=== PATIENT | female | born 1930 | race Caucasian/White ===

== ENCOUNTER 2019-04-17 12:13 | Inpatient (IN) | payer MEDICARE, OTHER ==
[~2019-04-17] VITALS: Ht 160 cm; Wt 66.7 kg
[2019-04-17 12:43] LABS: BASO % 1 % (0-3); EOS # 0.2 x10^3/uL (0.0-0.7); EOS % 4 % (0-3); HEMATOCRIT 39.6 % (36.0-47.0); HEMOGLOBIN 13.1 g/dL (12.0-15.5); LYMPH # 1.5 x10^3/uL (1.0-4.8); LYMPH % 29 % (24-48); MEAN CORPUSCULAR HEMOGLOBIN 34 pg (25-35); MEAN CORPUSCULAR HGB CONC 33 g/dL (31-37); MEAN CORPUSCULAR VOLUME 102 fL (79-100); MONO # 0.5 x10^3/uL (0.0-1.1); MONO % 10 % (0-9); NEUT % 57 % (31-73); PLATELET COUNT 124 x10^3/uL (140-400); RED BLOOD COUNT 3.87 x10^6/uL (3.50-5.40); RED CELL DISTRIBUTION WIDTH 15.9 % (11.5-14.5); WHITE BLOOD COUNT 5.3 x10^3/uL (4.0-11.0)
[2019-04-17 12:54] LABS: ALBUMIN 3.2 g/dL (3.4-5.0); ALBUMIN/GLOBULIN RATIO 0.9 (1.0-1.7); ALK PHOS 87 U/L (46-116); ALT (SGPT) 19 U/L (14-59); ANION GAP 3 (6-14); AST (SGOT) 20 U/L (15-37); BLOOD UREA NITROGEN 27 mg/dL (7-20); BUN/CREATININE RATIO 19 (6-20); CARBON DIOXIDE 34 mmol/L (21-32); CHLORIDE 105 mmol/L (98-107); CREATININE 1.4 mg/dL (0.6-1.0); GFR 35.7; GLUCOSE 107 mg/dL (70-99); MAGNESIUM 1.9 mg/dL (1.8-2.4); POTASSIUM 4.5 mmol/L (3.5-5.1); SODIUM 142 mmol/L (136-145); TOTAL BILIRUBIN 0.4 mg/dL (0.2-1.0); TOTAL PROTEIN 6.7 g/dL (6.4-8.2)
--- NOTE | 2019-04-17 12:54 | PHYS DOC ---
Past History Past Medical History: Asthma, Bipolar, Dementia, Hypertension, Schizophrenia, Other Additional Past Medical Histor: chronic kidney disease, osteoporosis right Past Surgical History: No Surgical History Smoking: Non-smoker Alcohol Use: None Drug Use: None Adult General Chief Complaint Chief Complaint: MEDICAL CLEARANCE HPI HPI Patient is a 88-year-old female presents with visual hallucinations and yelling. Combative towards staff. Verbally aggressive and name-calling at the assisted care facility where she resides. She is here for medical clearance for [facility]. History is limited from the patient due to history of dementia. Additional history obtained from patient's daughter. These current symptoms have been going on for approximately 6 months. Patient several decades ago had a year where she stopped talking after her partner . She was scheduled for electroconvulsive therapy bed he elected to leave the facility before this was provided.[] Review of Systems Review of Systems Constitutional: Denies fever or chills [] Eyes: Denies change in visual acuity, redness, or eye pain [] HENT: Denies nasal congestion or sore throat [] Respiratory: Denies cough or shortness of breath [] Cardiovascular: No chest pain or palpitations[] GI: Denies abdominal pain, nausea, vomiting, bloody stools or diarrhea [] : Denies dysuria or hematuria [] Musculoskeletal: Denies back pain or joint pain [] Integument: Denies rash or skin lesions [] Neurologic: Denies headache, focal weakness or sensory changes [] Endocrine: Denies polyuria or polydipsia [] All other systems were reviewed and found to be within normal limits, except as documented in this note. Physical Exam Physical Exam Constitutional: Well developed, well nourished, no acute distress, non-toxic appearance. [] HENT: Normocephalic, atraumatic, bilateral external ears normal, oropharynx moist, no oral exudates, nose normal. [] Eyes: PERRLA, EOMI, conjunctiva normal, no discharge. [] Neck: Normal range of motion, no tenderness, supple, no stridor. [] Cardiovascular:Heart rate regular rhythm, no murmur [] Lungs & Thorax: Bilateral breath sounds clear to auscultation [] Abdomen: Bowel sounds normal, soft, no tenderness, no masses, no pulsatile masses. [] Skin: Warm, dry, no erythema, no rash. [] Back: No tenderness, no CVA tenderness. [] Extremities: No tenderness, no cyanosis, no clubbing, ROM intact, no edema. [] Neurologic: Alert and oriented X 2, normal motor function, normal sensory function, no focal deficits noted. [] Psychologic: Randomly screaming out. Unable to assess judgment. [] Current Patient Data Vital Signs Vital Signs Date Time Temp Pulse Resp B/P (MAP) Pulse Ox O2 Delivery O2 Flow Rate FiO2 04/17/19 12:25 98.1 90 18 115/67 (83) 99 Nasal Cannula 2.0 Lab Results Laboratory Tests Test 04/17/19 12:22 White Blood Count 5.3 x10^3/uL (4.0-11.0) Red Blood Count 3.87 x10^6/uL (3.50-5.40) Hemoglobin 13.1 g/dL (12.0-15.5) Hematocrit 39.6 % (36.0-47.0) Mean Corpuscular Volume 102 fL (79-100) H Mean Corpuscular Hemoglobin 34 pg (25-35) Mean Corpuscular Hemoglobin Concent 33 g/dL (31-37) Red Cell Distribution Width 15.9 % (11.5-14.5) H Platelet Count 124 x10^3/uL (140-400) L Neutrophils (%) (Auto) 57 % (31-73) Lymphocytes (%) (Auto) 29 % (24-48) Monocytes (%) (Auto) 10 % (0-9) H Eosinophils (%) (Auto) 4 % (0-3) H Basophils (%) (Auto) 1 % (0-3) Neutrophils # (Auto) 3.0 x10^3uL (1.8-7.7) Lymphocytes # (Auto) 1.5 x10^3/uL (1.0-4.8) Monocytes # (Auto) 0.5 x10^3/uL (0.0-1.1) Eosinophils # (Auto) 0.2 x10^3/uL (0.0-0.7) Basophils # (Auto) 0.0 x10^3/uL (0.0-0.2) Prothrombin Time 10.8 SEC (9.4-11.4) Prothrombin Time INR 1.0 (0.9-1.1) EKG EKG EKG shows a sinus rhythm at 77 bpm, no ST elevations. Normal axis, QTC 411 ms, interpreted by me at 1322[] Radiology/Procedures Radiology/Procedures [] Course & Med Decision Making Course & Med Decision Making Pertinent Labs and Imaging studies reviewed. (See chart for details) ED course and medical decision making: Patient arrived, was placed in bed, and tolerated exam well. The white cells in the urine were noted and she was given antibiotics. Since these symptoms have been worsening for the past 6 months, she was thought to be medically clear for evaluation by [facility]. Findings were communicated with patient's daughter who voiced understanding. Patient was admitted in improved condition.[] Dragon Disclaimer Dragon Disclaimer This electronic medical record was generated, in whole or in part, using a voice recognition dictation system. Departure Departure: Impression: Primary Impression: Medical clearance for psychiatric admission Additional Impression: Urinary tract infection Disposition: ADMITTED INPATIENT Admitting Physician: Other Condition: STABLE Problem Qualifiers Additional Impression: Urinary tract infection Urinary tract infection type: site unspecified Hematuria presence: with hematuria Qualified Codes: N39.0 - Urinary tract infection, site not specified; R31.9 - Hematuria, unspecified ISAEL MAHONEY DO Apr 17, 2019 12:54
[2019-04-17 12:55] LABS: VAL ACID 34 mcg/mL (50-100)
--- NOTE | 2019-04-17 13:38 | EKG ---
[address] [address] Test Date: 2019-04-17 Test Time: 13:22:11 Pat Name: ALLIE JENSEN Department: Room: Gender: F District Branch Manager: : [id number] Requested By: ISAEL MAHONEY Order Number: [id number] Reading MD: Addy Borges MD Measurements Intervals Guild Rate: 77 P: 114 MT: 160 QRS: 32 QRSD: 74 T: 18 QT: 362 QTc: 411 Interpretive Statements SINUS RHYTHM Electronically Signed On 04-24-2019 17:04:05 CDT by Addy Borges MD
[2019-04-17 14:13] LABS: BACTERIA,URINE MOD /HPF (0-FEW); BILIRUBIN,URINE NEG (NEG); CLARITY,URINE CLOUDY; COLOR,URINE YELLOW; GLUCOSE,URINE NEG (NEG); NITRITE,URINE NEG (NEG); UROBILINOGEN,URINE 1 mg/dL (0.2 mg/dL); WBC,URINE >40 /HPF (0-4)
[2019-04-17 14:14] LABS: SQUAMOUS EPITHELIAL CELL,UR FEW /LPF
[2019-04-17] MEDS ORDERED: CEPHALEXIN 250 MG CAPSULE PO ONE (14:45)
[2019-04-17 15:36] VITALS: BP 124/74
[2019-04-17] MEDS ORDERED: ACETAMINOPHEN 325 MG TABLET PO PRN ×2 (16:15→20:15)
[2019-04-17] MEDS ORDERED: NYST1000 PO (18:25)
[2019-04-17] MEDS ORDERED: LACT1CAP21 PO (18:25)
[2019-04-17] MEDS ORDERED: FERR325T3 PO (18:25)
[2019-04-17] MEDS ORDERED: ACET160O49 PO (18:25)
[2019-04-17] MEDS ORDERED: ERGO500027 PO (18:25)
[2019-04-17] MEDS ORDERED: DULO20CA50 PO (18:25)
[2019-04-17] MEDS ORDERED: METO25TA4 PO (18:25)
[2019-04-17] MEDS ORDERED: ONDA4TAB7 PO (18:25)
[2019-04-17] MEDS ORDERED: ATOR10TA PO (18:25)
[2019-04-17] MEDS ORDERED: PANT40TA5 PO (18:25)
[2019-04-17] MEDS ORDERED: APIX5TAB3 PO (18:25)
[2019-04-17] MEDS ORDERED: CLON0.5T11 PO (18:25)
[2019-04-17] MEDS ORDERED: LEVO88TA4 PO (18:25)
[2019-04-17] MEDS ORDERED: QUET100T4 PO (18:25)
[2019-04-17] MEDS ORDERED: IPRA3AMP29 NEB (18:25)
[2019-04-17] MEDS ORDERED: DIVA125C2 PO (18:25)
[2019-04-17] MEDS ORDERED: CHOLECALCIFEROL (VITAMIN D3) 50,000 UNIT CAPSULE PO ONE (20:00)
[2019-04-17] MEDS ORDERED: ONDANSETRON ODT 4 MG TAB.RAPDIS PO PRN (20:15)
[2019-04-17] MEDS ORDERED: NYST15PO9 TP (20:28)
[2019-04-17] MEDS: DIVALPROEX 125 MG CAP.SPRINK PO SCH (20:57)
[2019-04-17] MEDS: CEPHALEXIN 250 MG CAPSULE PO SCH (20:57)
[2019-04-17] MEDS: APIXABAN 5 MG TABLET. PO SCH (20:57)
[2019-04-17] MEDS: LACTOBACILLUS RHAMNOSUS GG 1 CAPSULE. PO SCH (20:57)
[2019-04-17] MEDS: QUEtiapine 100 MG TABLET. PO SCH (20:57)
[2019-04-17] MEDS: METOPROLOL TART IMMED RELEASE 25 MG TABLET PO SCH (20:58)
[2019-04-17] MEDS: NYSTATIN TOPICAL POWDER 15GM BOTTLE. TP SCH (20:59)
[2019-04-17] MEDS: clonazePAM 0.5 MG TABLET PO SCH (20:59)
[2019-04-17] MEDS: ATORVASTATIN CALCIUM 10 MG TABLET. PO SCH (21:00)
[2019-04-17] MEDS: IPRATRPIUM/ALBUTEROL 0.5/2.5MG 3 ML NEBU. NEB SCH (21:26)
--- NOTE | 2019-04-17 22:01 | PDOC ---
Exam Note: Jose Note: Please also refer to the separate dictated note~for this date of service dictated separately. Discussed the patient with Nursing staff reviewed the chart.~Reviewed interim history and current functioning. Reviewed vital signs,~Labs/ Radiology~and current medications noted below. Continue current treatment with the changes noted in the dictated addendum note Assessment: Vital Signs/I&O: Vital Signs Date Time Temp Pulse Resp B/P (MAP) Pulse Ox O2 Delivery O2 Flow Rate FiO2 04/17/19 21:30 96 Room Air 04/17/19 21:01 83 124/74 04/17/19 15:36 97.8 20 04/17/19 12:25 2.0 Labs: Laboratory Tests Test 04/17/19 12:22 04/17/19 13:38 White Blood Count 5.3 x10^3/uL (4.0-11.0) Red Blood Count 3.87 x10^6/uL (3.50-5.40) Hemoglobin 13.1 g/dL (12.0-15.5) Hematocrit 39.6 % (36.0-47.0) Mean Corpuscular Volume 102 fL (79-100) H Mean Corpuscular Hemoglobin 34 pg (25-35) Mean Corpuscular Hemoglobin Concent 33 g/dL (31-37) Red Cell Distribution Width 15.9 % (11.5-14.5) H Platelet Count 124 x10^3/uL (140-400) L Neutrophils (%) (Auto) 57 % (31-73) Lymphocytes (%) (Auto) 29 % (24-48) Monocytes (%) (Auto) 10 % (0-9) H Eosinophils (%) (Auto) 4 % (0-3) H Basophils (%) (Auto) 1 % (0-3) Neutrophils # (Auto) 3.0 x10^3uL (1.8-7.7) Lymphocytes # (Auto) 1.5 x10^3/uL (1.0-4.8) Monocytes # (Auto) 0.5 x10^3/uL (0.0-1.1) Eosinophils # (Auto) 0.2 x10^3/uL (0.0-0.7) Basophils # (Auto) 0.0 x10^3/uL (0.0-0.2) Prothrombin Time 10.8 SEC (9.4-11.4) Prothrombin Time INR 1.0 (0.9-1.1) Sodium Level 142 mmol/L (136-145) Potassium Level 4.5 mmol/L (3.5-5.1) Chloride Level 105 mmol/L (98-107) Carbon Dioxide Level 34 mmol/L (21-32) H Anion Gap 3 (6-14) L Blood Urea Nitrogen 27 mg/dL (7-20) H Creatinine 1.4 mg/dL (0.6-1.0) H Estimated GFR (Cockcroft-Gault) 35.7 BUN/Creatinine Ratio 19 (6-20) Glucose Level 107 mg/dL (70-99) H Calcium Level 9.0 mg/dL (8.5-10.1) Magnesium Level 1.9 mg/dL (1.8-2.4) Total Bilirubin 0.4 mg/dL (0.2-1.0) Aspartate Amino Transferase (AST) 20 U/L (15-37) Alanine Aminotransferase (ALT) 19 U/L (14-59) Alkaline Phosphatase 87 U/L (46-116) Total Protein 6.7 g/dL (6.4-8.2) Albumin 3.2 g/dL (3.4-5.0) L Albumin/Globulin Ratio 0.9 (1.0-1.7) L Valproic Acid Level 34 mcg/mL (50-100) L Valproic Acid Last Dose Date 04/17/2019 Valproic Acid Last Dose Time 0001 Urine Collection Type U cath Urine Color Yellow Urine Clarity Cloudy Urine pH 7.5 Urine Specific [place] 1.020 Urine Protein 30 mg/dl (NEG-TRACE) Urine Glucose (UA) Neg mg/dL (NEG) Urine Ketones (Stick) Neg mg/dL (NEG) Urine Blood Mod (NEG) Urine Nitrite Neg (NEG) Urine Bilirubin Neg (NEG) Urine Urobilinogen Dipstick 1 mg/dL (0.2 mg/dL) Urine Leukocyte Esterase Mod (NEG) Urine RBC 11-20 /HPF (0-2) Urine WBC >40 /HPF (0-4) Urine Squamous Epithelial Cells Few /LPF Urine Bacteria Mod /HPF (0-FEW) Current Medications: Meds: Current Medications Medications (Trade) Dose Ordered Sig/Ne Route PRN Reason Start Time Stop Time Status Last Admin Dose Admin Cephalexin HCl (Keflex) 500 mg 1X ONCE PO 04/17/19 14:45 04/17/19 14:46 DC 04/17/19 14:38 Cephalexin HCl (Keflex) 500 mg TID PO 04/17/19 21:00 04/17/19 21:01 Vitamin D (Vitamin D3) 50,000 unit 1X ONCE PO 04/17/19 20:00 04/17/19 20:11 DC 04/17/19 21:01 Lactobacillus Rhamnosus (Culturelle) 1 cap BID PO 04/17/19 21:00 04/17/19 21:01 Clonazepam (KlonoPIN) 0.25 mg BID PO 04/17/19 21:00 04/17/19 21:01 Divalproex Sodium (Depakote Sprinkles) 375 mg QHS PO 04/17/19 21:00 04/17/19 21:01 Quetiapine Fumarate (SEROquel) 100 mg Q12HR PO 04/17/19 21:00 04/17/19 21:01 Apixaban (Eliquis) 5 mg BID PO 04/17/19 21:00 04/17/19 21:01 Atorvastatin Calcium (Lipitor) 5 mg QHS PO 04/17/19 21:00 04/17/19 21:01 Albuterol/ Ipratropium (Duoneb) 3 ml QID NEB 04/17/19 21:00 04/17/19 21:26 Metoprolol Tartrate (Lopressor) 12.5 mg BID PO 04/17/19 21:00 04/17/19 21:01 Nystatin (Nystop) 1 roxie TID TP 04/17/19 21:00 04/17/19 21:01 I have reviewed the current psychotropics carefully including drug interactions. Risk benefit ratio favors no change other than as noted in my dictated progress note. Diagnosis: Problems: (1) Anxiety disorder (2) Dementia in Alzheimer's disease with delusions (3) Dementia in Alzheimer's disease with depression (4) Dementia, vascular, with depression (5) Dementia, vascular, with delusions (6) Impulse control disorder ARMINDA YORK MD Apr 17, 2019 22:01
[2019-04-17 23:06] LABS: THYROXINE 4.7 ug/dL (4.5-12.0)
[2019-04-18 05:50] VITALS: BP 99/64
[2019-04-18] MEDS: IPRATRPIUM/ALBUTEROL 0.5/2.5MG 3 ML NEBU. NEB SCH ×4 (06:14→20:52)
[2019-04-18] MEDS ORDERED: LEVOTHYROXINE 88 MCG TABLET PO SCH (07:30)
[2019-04-18] MEDS: QUEtiapine 100 MG TABLET. PO SCH ×2 (08:44→20:06)
[2019-04-18] MEDS: LACTOBACILLUS RHAMNOSUS GG 1 CAPSULE. PO SCH ×2 (08:44→20:05)
[2019-04-18] MEDS: DULoxetine HCL 20 MG CAPSULE.DR PO SCH (08:44)
[2019-04-18] MEDS: FERROUS SULFATE 325 MG TABLET. PO SCH (08:45)
[2019-04-18] MEDS: PANTOPRAZOLE 40 MG TABLET. PO SCH ×2 (08:45→15:20)
[2019-04-18] MEDS: clonazePAM 0.5 MG TABLET PO SCH ×2 (08:45→20:08)
[2019-04-18] MEDS: CEPHALEXIN 250 MG CAPSULE PO SCH ×3 (08:45→20:05)
[2019-04-18] MEDS: APIXABAN 5 MG TABLET. PO SCH ×2 (08:45→20:05)
[2019-04-18] MEDS: METOPROLOL TART IMMED RELEASE 25 MG TABLET PO SCH ×2 (08:46→20:07)
[2019-04-18] MEDS: NYSTATIN TOPICAL POWDER 15GM BOTTLE. TP SCH ×3 (08:46→20:06)
--- NOTE | 2019-04-18 10:12 | RAD ---
CT scan of the head without contrast 04/18/2019 Clinical History: Mental status changes. Technique: Unenhanced, contiguous, 5 mm axial sections were obtained through the head. One or more of the following individualized dose reduction techniques were utilized for this study: 1. Automated exposure control. 2. Adjustment of the mA and/or kV according to patient size. 3. Use of iterative reconstruction technique. Findings: Comparison study is dated 10/22/2016. There is generalized parenchymal atrophy. Areas of decreased attenuation are seen within the periventricular and subcortical white matter of both cerebral hemispheres consistent with areas of small vessel ischemic disease. A 1 cm rounded extra-axial mass is seen posterior to the right parietal lobe consistent with a meningioma. It is unchanged. There is no significant mass effect. No acute parenchymal abnormality is seen. No extra-axial fluid collection is noted. No skull fracture is seen. Impression: No acute intracranial abnormality is seen. Electronically signed by: Sherman Contreras MD (04/18/2019 10:09 AM) [id number]
--- NOTE | 2019-04-18 14:37 | HP ---
ADMIT DATE: 04/17/2019 PSYCHIATRIC ADMISSION HISTORY AND EVALUATION This late entry, 04/17/2019, covers elements not covered in my initial note. SUBJECTIVE: I met with the patient evening of 04/17/2019 and previously discussed with nursing staff and Luma Agudelo, technical services coordinator after we got a referral from [facility] in [place], [place] on account of the patient's active visual hallucinations, yelling, physically combative towards staff, kicking and name calling, verbally aggressive. She had failed outpatient psychiatric interventions with Dr. Suero and her primary care physician, Dr. Bonilla, resulting in this referral. CHIEF COMPLAINT: "I have been here for many years." The patient is quite confused, restless, anxious. HISTORY OF PRESENT ILLNESS: The patient has a history of dementia, Alzheimer's vascular type. She has been residing at the above facility for some time, but recently having active hallucinations, mostly visual, some auditory, yelling, combative at staff, kicking and name calling, verbally aggressive, physically attacking staff. She has had sleep and appetite changes, has a questionable past history of bipolar disorder. No active suicidal or homicidal ideation other than above. PAST PSYCHIATRIC HISTORY: As above. MEDICAL HISTORY: Chronic kidney disease stage 3, osteoporosis, hypertension. No alcohol or drug abuse history. ALLERGIES: Negative. CODE STATUS: DNR. ACCU-CHEKS: Negative. DIET: Regular mechanical soft. Takes medications whole. Ambulates wheelchair 1 or 2 person assist. She was positive for UTI in the ER and started on Keflex. I have reviewed those records as well. FAMILY HISTORY: Noncontributory. SOCIAL HISTORY: No history of alcohol, drug abuse, physical, sexual or elder abuse. She is not known to be a perpetrator. REACTION TO HOSPITALIZATION: The patient oblivious of this asset, supportive, stable living at the alf. MENTAL STATUS EXAMINATION: The patient was seen individually evening of 04/17/2019. She is oriented to herself. She is anxious, restless. Insight, judgment, recent and remote memory, attention, concentration, fund of knowledge poor, consistent with her diagnosis. LABORATORY DATA: Reviewed. IMPRESSION: Major neurocognitive disorder, Alzheimer, vascular with delusion, depression, behavioral disturbance; anxiety disorder, unspecified; impulse control disorder, unspecified; urinary tract infection. Rest as above. PLAN: Admit to Geropsychiatry Unit at [facility]. I will see the patient daily individually from a psychiatric standpoint. Medical followup with Dr. Gaytan. Continue current psychotropics. Observe the patient's baseline, then adjust as clinically indicated. MAN Victor M YORK MD DR: GONZALO/layne JOB#: [id number] / [id number]
[2019-04-18 15:23] VITALS: BP 127/65
[2019-04-18] MEDS: DIVALPROEX 125 MG CAP.SPRINK PO SCH (20:05)
[2019-04-18] MEDS: ATORVASTATIN CALCIUM 10 MG TABLET. PO SCH (20:06)
[2019-04-18] MEDS: MIRTAZAPINE 7.5 MG TABLET. PO SCH (20:08)
[2019-04-18 20:44] LABS: THYROID STIM HORMONE (TSH) 1.37 uIU/mL (0.358-3.740)
--- NOTE | 2019-04-18 22:04 | PDOC ---
Exam Note: Jose Note: Please also refer to the separate dictated note~for this date of service dictated separately.~Patient seen individually. Discussed the patient with Nursing staff reviewed the chart.~Reviewed interim history and current functioning. Reviewed vital signs,~Labs/ Radiology~and current medications noted below. Continue current treatment with the changes noted in the dictated addendum note Assessment: Vital Signs/I&O: Vital Signs Date Time Temp Pulse Resp B/P (MAP) Pulse Ox O2 Delivery O2 Flow Rate FiO2 04/18/19 20:45 96 Room Air 04/18/19 20:08 69 127/65 04/18/19 15:23 97.9 16 04/17/19 12:25 2.0 I & O 04/17/19 04/17/19 04/18/19 15:00 23:00 07:00 Intake Total 240 ml 120 ml Balance 240 ml 120 ml Current Medications: Meds: Current Medications Medications (Trade) Dose Ordered Sig/Ne Route PRN Reason Start Time Stop Time Status Last Admin Dose Admin Ferrous Sulfate (Feosol) 325 mg DAILYWBKFT PO 04/18/19 08:00 04/18/19 08:46 Duloxetine HCl (Cymbalta) 20 mg DAILY PO 04/18/19 09:00 04/18/19 08:46 Pantoprazole Sodium (Protonix) 40 mg BIDBFRMEAL PO 04/18/19 07:30 04/18/19 15:20 Mirtazapine (Remeron) 7.5 mg QHS PO 04/18/19 21:00 04/18/19 20:08 I have reviewed the current psychotropics carefully including drug interactions. Risk benefit ratio favors no change other than as noted in my dictated progress note. Diagnosis: Problems: (1) Anxiety disorder (2) Dementia in Alzheimer's disease with delusions (3) Dementia in Alzheimer's disease with depression (4) Dementia, vascular, with depression (5) Dementia, vascular, with delusions (6) Impulse control disorder (7) Major neurocognitive disorder ARMINDA YORK MD Apr 18, 2019 22:04
[2019-04-19 00:07] LABS: HEMOGLOBIN A1C 5.1 % (4.8-5.6)
--- NOTE | 2019-04-19 01:56 | CONS ---
DATE OF CONSULTATION: 04/18/2019 REASON FOR CONSULTATION: Medical management. HISTORY OF PRESENT ILLNESS: The patient is an 88-year-old female patient, a resident at [facility], who was referred by her primary care physician on account of the patient's active visual hallucination, yelling, physically combative towards staff, kicking and name calling, verbally aggressive. She had failed outpatient psychiatric intervention and resulting in a referral [facility]. PAST PSYCHIATRIC HISTORY: Significant for dementia, Alzheimer, vascular type, has been in the above-named facility for some time, but recently has active hallucinations, mostly visual, somewhat jittery, yelling, combative. There were no suicidal or homicidal ideation. PAST MEDICAL HISTORY: Significant for chronic kidney disease stage 3, osteoporosis, hypertension. PAST SURGICAL HISTORY: Unremarkable. FAMILY HISTORY: Noncontributory. SOCIAL HISTORY: She is a resident at [facility]. She apparently does not smoke, drink alcohol, or use recreational drugs. ALLERGIES: She has no known drug allergies. MEDICATIONS: She is currently on following medications: She is on ipratropium bromide and albuterol sulfate 3 mL by nebulizer 4 times a day, ferrous sulfate 325 mg twice a day, apixaban or Eliquis 5 mg twice a day, atorvastatin calcium 5 mg at bedtime. She is on metoprolol tartrate 12.5 mg twice a day, acetaminophen 650 mg every 6 hours, clonazepam 0.25 mg twice a day, Depakote Sprinkle 375 mg at bedtime, duloxetine 20 mg daily, quetiapine fumarate 100 mg every 12 hours, ondansetron ODT 4 mg every 6 hours, Protonix 40 mg twice a day, Lactobacillus rhamnosus 1 gram twice a day, levothyroxine sodium 88 mcg once a day, nystatin powder apply topically 3 times a day, ergocalciferol, vitamin D3 50,000 international units once a week. PHYSICAL EXAMINATION: GENERAL: When I examined her, she was sitting comfortably in her wheelchair, in no apparent respiratory distress. She was pale, but no jaundice, cyanosis or thyromegaly. No jugular venous distension. No limb edema. VITAL SIGNS: Her heart rate was 74, blood pressure was 99/64, temperature was 96.9, respiratory rate was 18, and oxygen saturation was 95%. HEAD, EYES, EAR, NOSE, AND THROAT: Normocephalic, atraumatic. NECK: Supple. HEART: Showed normal first and second heart sounds. No gallop or murmur. CHEST: Clear to auscultation. No crepitation or rhonchi. ABDOMEN: Distended, soft, nontender. NEUROLOGIC: She is demented, but without any obvious lateralizing signs. All cranial nerves intact. EXTREMITIES: She moves extremities without difficulty, though she is mostly bedbound. She has old wound on the anterior aspect of the right schroeder covered with Steri-Strips with no evidence of surrounding erythema, tenderness or discharge. LABORATORY DATA: Her lab work today showed a serum sodium 142, potassium 4.5, chloride 105, bicarbonate 34, anion gap of 3, BUN of 27, creatinine 1.4, estimated GFR was 36 mL per minute. Her glucose 107, calcium was 9, magnesium was 1.9. Total bilirubin, AST, ALT, alkaline phosphatase; total protein was 6.7, albumin was 3.2, T4 of 4.7, total T3 of 61. White cell count was 5300, hemoglobin 13, hematocrit 39, MCV 102, platelet was 124,000. Her prothrombin time was 10.8, INR of 1. Urinalysis showed the patient has more than 40 wbc's, moderate amount of blood, negative for nitrite, has also moderate bacteria. Her valproic acid was only 34 nanogram per mL. IMAGING STUDIES: She did have a CT scan of the head, which showed that there is generalized parenchymal atrophy, areas of decreased attenuation are seen within the periventricular and subcortical white matter of both cerebral hemispheres consistent with areas of small vessel ischemic disease. A 1-cm rounded extraaxial mass is seen posterior to the right parietal lobe consistent with a meningioma, which is unchanged. There is no significant mass effect, no acute parenchymal abnormality seen. No extraaxial fluid collection is noted. No skull fracture is seen. IMPRESSION: In summary, this is an 88-year-old female patient, who is residing at [facility], who was admitted on account of increasing visual hallucination, yelling, physically combative towards staff, kicking and name calling, verbally aggressive, apparently has failed outpatient psychiatric intervention. Medically, she has a multitude of medical problems including hypertension, hyperlipidemia, hypothyroidism, gastroesophageal reflux disease, chronic kidney disease, urinary tract infection, osteoporosis, and osteoarthritis. She is hemodynamically stable, afebrile, and her white cell count is normal. I would wait for the result of the culture and sensitivity. Meanwhile, we will continue with all her current medications. I will follow all her lab works that are still pending at the time of this dictation and make any necessary recommendation. Thank you, Dr. Mahmood for allowing me to participate in the care of this patient. WILFRED JAIMES MD DR: LEA/layne JOB#: [id number] / [id number]
[2019-04-19] MEDS: IPRATRPIUM/ALBUTEROL 0.5/2.5MG 3 ML NEBU. NEB SCH ×4 (05:03→20:39)
[2019-04-19] MEDS: LEVOTHYROXINE 88 MCG TABLET PO SCH (05:30)
[2019-04-19 05:34] VITALS: BP 96/57
[2019-04-19] MEDS: FERROUS SULFATE 325 MG TABLET. PO SCH (08:07)
[2019-04-19] MEDS: PANTOPRAZOLE 40 MG TABLET. PO SCH ×2 (08:07→17:17)
[2019-04-19] MEDS: LACTOBACILLUS RHAMNOSUS GG 1 CAPSULE. PO SCH ×2 (08:07→19:17)
[2019-04-19] MEDS: DULoxetine HCL 20 MG CAPSULE.DR PO SCH (08:07)
[2019-04-19] MEDS: CEPHALEXIN 250 MG CAPSULE PO SCH ×3 (08:09→19:17)
[2019-04-19] MEDS: APIXABAN 5 MG TABLET. PO SCH ×2 (08:09→19:17)
[2019-04-19] MEDS: DIVALPROEX 125 MG CAP.SPRINK PO SCH ×2 (08:09→19:16)
[2019-04-19] MEDS: METOPROLOL TART IMMED RELEASE 25 MG TABLET PO SCH ×2 (08:10→19:20)
[2019-04-19] MEDS: clonazePAM 0.5 MG TABLET PO SCH ×2 (08:10→19:20)
[2019-04-19] MEDS: QUEtiapine 100 MG TABLET. PO SCH ×2 (08:11→19:17)
[2019-04-19] MEDS: NYSTATIN TOPICAL POWDER 15GM BOTTLE. TP SCH ×3 (08:11→19:18)
[2019-04-19 15:44] VITALS: BP 111/73
[2019-04-19] MEDS: ATORVASTATIN CALCIUM 10 MG TABLET. PO SCH (19:17)
[2019-04-19] MEDS: MIRTAZAPINE 7.5 MG TABLET. PO SCH (19:17)
--- NOTE | 2019-04-19 21:55 | PDOC ---
Exam Note: Jose Note: Please also refer to the separate dictated note~for this date of service dictated separately.~Patient seen individually. Discussed the patient with Nursing staff reviewed the chart.~Reviewed interim history and current functioning. Reviewed vital signs,~Labs/ Radiology~and current medications noted below. Continue current treatment with the changes noted in the dictated addendum note Assessment: Vital Signs/I&O: Vital Signs Date Time Temp Pulse Resp B/P (MAP) Pulse Ox O2 Delivery O2 Flow Rate FiO2 04/19/19 20:20 95 Room Air 04/19/19 19:21 66 111/73 04/19/19 15:44 97.4 20 04/17/19 12:25 2.0 I & O 04/18/19 04/18/19 04/19/19 15:00 23:00 07:00 Intake Total 480 ml 240 ml 240 ml Balance 480 ml 240 ml 240 ml Current Medications: Meds: Current Medications Medications (Trade) Dose Ordered Sig/Ne Route PRN Reason Start Time Stop Time Status Last Admin Dose Admin Levothyroxine Sodium (Synthroid) 88 mcg DAILY06 PO 04/19/19 06:00 04/19/19 05:30 Divalproex Sodium (Depakote Sprinkles) 250 mg DAILY PO 04/19/19 09:00 04/19/19 08:11 I have reviewed the current psychotropics carefully including drug interactions. Risk benefit ratio favors no change other than as noted in my dictated progress note. Diagnosis: Problems: (1) Major neurocognitive disorder (2) Anxiety disorder (3) Dementia in Alzheimer's disease with delusions (4) Dementia in Alzheimer's disease with depression (5) Dementia, vascular, with depression (6) Dementia, vascular, with delusions (7) Impulse control disorder ARMINDA YORK MD Apr 19, 2019 21:55
[2019-04-20] MEDS: IPRATRPIUM/ALBUTEROL 0.5/2.5MG 3 ML NEBU. NEB SCH ×4 (05:19→20:44)
[2019-04-20] MEDS: LEVOTHYROXINE 88 MCG TABLET PO SCH (05:28)
[2019-04-20 05:50] VITALS: BP 132/77
[2019-04-20] MEDS: LACTOBACILLUS RHAMNOSUS GG 1 CAPSULE. PO SCH ×2 (08:03→20:23)
[2019-04-20] MEDS: PANTOPRAZOLE 40 MG TABLET. PO SCH ×2 (08:03→16:56)
[2019-04-20] MEDS: FERROUS SULFATE 325 MG TABLET. PO SCH (08:03)
[2019-04-20] MEDS: DIVALPROEX 125 MG CAP.SPRINK PO SCH ×2 (08:03→20:24)
[2019-04-20] MEDS: DULoxetine HCL 20 MG CAPSULE.DR PO SCH (08:03)
[2019-04-20] MEDS: APIXABAN 5 MG TABLET. PO SCH ×2 (08:04→20:23)
[2019-04-20] MEDS: CEPHALEXIN 250 MG CAPSULE PO SCH ×2 (08:04→13:24)
[2019-04-20] MEDS: clonazePAM 0.5 MG TABLET PO SCH ×2 (08:05→20:26)
[2019-04-20] MEDS: QUEtiapine 100 MG TABLET. PO SCH ×2 (08:07→20:23)
[2019-04-20] MEDS: METOPROLOL TART IMMED RELEASE 25 MG TABLET PO SCH ×2 (08:07→20:34)
[2019-04-20] MEDS: NYSTATIN TOPICAL POWDER 15GM BOTTLE. TP SCH ×3 (08:08→20:26)
[2019-04-20 15:59] VITALS: BP 101/63
[2019-04-20] MEDS: MIRTAZAPINE 7.5 MG TABLET. PO SCH (20:23)
[2019-04-20] MEDS: ATORVASTATIN CALCIUM 10 MG TABLET. PO SCH (20:24)
[2019-04-20] MEDS: DOXYCYCLINE HYCLATE 100 MG TABLET PO SCH (20:26)
[2019-04-20 20:33] VITALS: BP 112/59
--- NOTE | 2019-04-20 21:00 | PDOC ---
Exam Note: Jose Note: Please also refer to the separate dictated note~for this date of service dictated separately.~Patient seen individually. Discussed the patient with Nursing staff reviewed the chart.~Reviewed interim history and current functioning. Reviewed vital signs,~Labs/ Radiology~and current medications noted below. Continue current treatment with the changes noted in the dictated addendum note Assessment: Vital Signs/I&O: Vital Signs Date Time Temp Pulse Resp B/P (MAP) Pulse Ox O2 Delivery O2 Flow Rate FiO2 04/20/19 20:34 85 112/59 04/20/19 16:04 94 Room Air 04/20/19 15:59 97.1 20 04/20/19 05:50 2.0 I & O 04/19/19 04/19/19 04/20/19 14:59 22:59 06:59 Intake Total 480 ml 240 ml 120 ml Balance 480 ml 240 ml 120 ml Current Medications: Meds: Current Medications Medications (Trade) Dose Ordered Sig/Ne Route PRN Reason Start Time Stop Time Status Last Admin Dose Admin Doxycycline Hyclate (Vibra-Tab) 100 mg BID PO 04/20/19 21:00 04/20/19 20:26 I have reviewed the current psychotropics carefully including drug interactions. Risk benefit ratio favors no change other than as noted in my dictated progress note. Diagnosis: Problems: (1) Major neurocognitive disorder (2) Anxiety disorder (3) Dementia in Alzheimer's disease with delusions (4) Dementia in Alzheimer's disease with depression (5) Dementia, vascular, with depression (6) Dementia, vascular, with delusions (7) Impulse control disorder ARMINDA YORK MD Apr 20, 2019 21:00
--- NOTE | 2019-04-20 22:01 | PN ---
DATE: 04/18/2019 PSYCHIATRIC PROGRESS NOTE This late entry 04/18/2019 covers elements not covered in my initial note. SUBJECTIVE: I met with the patient evening of 04/18/2019. The patient slept 5-1/2 hours previous night. She has been extremely labile in her mood, kicking at staff, refusing her dentures. CT head shows no acute changes. She remains confused, believes she has been here 1-1/2 years as I questioned her. REVIEW OF SYSTEMS: Ambulation impaired, in wheelchair. No CV, , pulmonary, eye, ENT system symptoms on review. MENTAL STATUS EXAMINATION: Oriented to herself. Insight, judgment, recent and remote memory, attention, concentration, fund of knowledge poor, consistent with her diagnoses. IMPRESSION: Major neurocognitive disorder; Alzheimer, vascular with delusion; depression; behavioral disturbance; anxiety disorder, unspecified; impulse control disorder, unspecified; urinary tract infection, on Keflex. PLAN: Valproic acid level is subtherapeutic at 34. She is on Depakote Sprinkles 375 mg at bedtime, Klonopin 0.25 mg twice a day, Seroquel 100 mg twice a day, Cymbalta 20 mg a day. She slept 5-1/4 hours and we will go ahead and add Remeron 7.5 mg at bedtime, increase Depakote Sprinkles to 250 mg in the morning, 375 mg at bedtime. Check CBC, CMP, valproic acid level in 3 days. Treat the UTI. Adjust further as clinically indicated. ARMINDA YORK MD DR: GONZALO/layne JOB#: [id number] / [id number]
--- NOTE | 2019-04-20 22:06 | PN ---
DATE: 04/19/2019 PSYCHIATRIC PROGRESS NOTE This late entry 04/19/2019 covers elements not covered in my initial note. SUBJECTIVE: I met with the patient evening of 04/19/2019. The patient slept 6-1/2 hours previous night. She did well during the day until 7:00 p.m. and then she was yelling, screaming, running into others with her wheelchair and into their rooms, difficult to redirect. Vitamin D is elevated at 142 ng/mL. There is no psychiatric cause for this and I will defer to Dr. Gaytan for further workup. REVIEW OF SYSTEMS: Ambulation impaired, in wheelchair. No CV, , pulmonary, eye, ENT system symptoms on review. Reliability poor. MENTAL STATUS EXAM: Oriented to herself. Insight, judgment, recent and remote memory, attention, concentration, fund of knowledge poor, consistent with her diagnosis mentioned in my initial note. PLAN: No change from initial note. Depakote was increased. Labs are awaited on the . Vitamin D will be deferred to Dr. Gaytan. Treat the UTI. Rest unchanged. MAN Victor M YORK MD DR: GONZALO/layne JOB#: [id number] / [id number]
[2019-04-21 05:41] VITALS: BP 148/75
[2019-04-21] MEDS: IPRATRPIUM/ALBUTEROL 0.5/2.5MG 3 ML NEBU. NEB SCH ×4 (05:55→20:40)
[2019-04-21] MEDS: LEVOTHYROXINE 88 MCG TABLET PO SCH (06:23)
[2019-04-21] MEDS: LACTOBACILLUS RHAMNOSUS GG 1 CAPSULE. PO SCH ×2 (07:46→19:34)
[2019-04-21] MEDS: DIVALPROEX 125 MG CAP.SPRINK PO SCH ×2 (07:46→19:35)
[2019-04-21] MEDS: PANTOPRAZOLE 40 MG TABLET. PO SCH ×2 (07:46→16:59)
[2019-04-21] MEDS: APIXABAN 5 MG TABLET. PO SCH ×2 (07:46→19:35)
[2019-04-21] MEDS: DOXYCYCLINE HYCLATE 100 MG TABLET PO SCH ×2 (07:46→19:35)
[2019-04-21] MEDS: FERROUS SULFATE 325 MG TABLET. PO SCH (07:47)
[2019-04-21] MEDS: DULoxetine HCL 20 MG CAPSULE.DR PO SCH (07:47)
[2019-04-21] MEDS: METOPROLOL TART IMMED RELEASE 25 MG TABLET PO SCH ×2 (07:48→19:39)
[2019-04-21] MEDS: QUEtiapine 100 MG TABLET. PO SCH ×2 (07:51→19:34)
[2019-04-21] MEDS: clonazePAM 0.5 MG TABLET PO SCH ×2 (07:51→19:36)
[2019-04-21] MEDS: NYSTATIN TOPICAL POWDER 15GM BOTTLE. TP SCH ×3 (07:52→19:35)
[2019-04-21 15:46] VITALS: BP 107/67
[2019-04-21] MEDS: MIRTAZAPINE 7.5 MG TABLET. PO SCH (19:34)
[2019-04-21] MEDS: ATORVASTATIN CALCIUM 10 MG TABLET. PO SCH (19:35)
[2019-04-21 19:38] VITALS: BP 120/58
--- NOTE | 2019-04-21 22:21 | PDOC ---
Exam Note: Jose Note: Please also refer to the separate dictated note~for this date of service dictated separately.~Patient seen individually. Discussed the patient with Nursing staff reviewed the chart.~Reviewed interim history and current functioning. Reviewed vital signs,~Labs/ Radiology~and current medications noted below. Continue current treatment with the changes noted in the dictated addendum note Assessment: Vital Signs/I&O: Vital Signs Date Time Temp Pulse Resp B/P (MAP) Pulse Ox O2 Delivery O2 Flow Rate FiO2 04/21/19 20:24 96 Room Air 04/21/19 19:39 78 120/58 04/21/19 15:46 97.4 16 04/20/19 05:50 2.0 I & O 04/20/19 04/20/19 04/21/19 14:59 22:59 06:59 Intake Total 240 ml 240 ml 120 ml Balance 240 ml 240 ml 120 ml Current Medications: I have reviewed the current psychotropics carefully including drug interactions. Risk benefit ratio favors no change other than as noted in my dictated progress note. Diagnosis: Problems: (1) Anxiety disorder (2) Dementia in Alzheimer's disease with delusions (3) Dementia in Alzheimer's disease with depression (4) Dementia, vascular, with depression (5) Dementia, vascular, with delusions (6) Impulse control disorder (7) Major neurocognitive disorder ARMINDA YORK MD Apr 21, 2019 22:21
--- NOTE | 2019-04-21 23:18 | PN ---
DATE: 04/20/2019 PSYCHIATRIC PROGRESS NOTE This late entry, 04/20/2019, covers elements not covered in my initial note. SUBJECTIVE: I met with the patient in the evening of 04/20/2019. The patient slept 7-3/4 hours previous night. She has been delusional, looking for her daughter and as I met with her that is the first question she asked me, if I could find her daughter. When I asked her what was her daughter's name? She replied "Leeanna." When I reminded her that is what her name was, then she added Yolanda and was still confused about her daughter's name, unable to remember it after repeated attempts. REVIEW OF SYSTEMS: Ambulation impaired, in wheelchair. No CV, , pulmonary, eye, ENT system symptoms on review. MENTAL STATUS EXAM: The patient is oriented to herself. Insight, judgment, recent and remote memory, attention, concentration, fund of knowledge poor, consistent with her diagnosis mentioned in my initial note. PLAN: No change from initial note. The patient's Keflex has been changed to doxycycline 100 mg b.i.d. for the UTI. Maintain Cymbalta, Seroquel, Depakote along with Klonopin, Zyprexa p.r.n., and Remeron. ARMINDA YORK MD DR: GONZALO/layne JOB#: [id number] / [id number]
[2019-04-22] MEDS: LEVOTHYROXINE 88 MCG TABLET PO SCH (05:29)
[2019-04-22] MEDS: IPRATRPIUM/ALBUTEROL 0.5/2.5MG 3 ML NEBU. NEB SCH ×4 (05:34→20:09)
[2019-04-22 06:13] VITALS: BP 136/75
[2019-04-22 07:22] LABS: BASO % 1 % (0-3); EOS # 0.2 x10^3/uL (0.0-0.7); EOS % 3 % (0-3); HEMOGLOBIN 13.9 g/dL (12.0-15.5); LYMPH # 1.3 x10^3/uL (1.0-4.8); LYMPH % 15 % (24-48); MEAN CORPUSCULAR HEMOGLOBIN 33 pg (25-35); MEAN CORPUSCULAR HGB CONC 33 g/dL (31-37); MEAN CORPUSCULAR VOLUME 101 fL (79-100); MONO # 0.6 x10^3/uL (0.0-1.1); MONO % 7 % (0-9); NEUT # 6.4 x10^3uL (1.8-7.7); NEUT % 75 % (31-73); PLATELET COUNT 139 x10^3/uL (140-400); RED BLOOD COUNT 4.15 x10^6/uL (3.50-5.40); RED CELL DISTRIBUTION WIDTH 15.7 % (11.5-14.5); WHITE BLOOD COUNT 8.5 x10^3/uL (4.0-11.0)
[2019-04-22 07:37] LABS: ALBUMIN 3.3 g/dL (3.4-5.0); ALK PHOS 78 U/L (46-116); ALT (SGPT) 17 U/L (14-59); ANION GAP 9 (6-14); AST (SGOT) 22 U/L (15-37); BLOOD UREA NITROGEN 18 mg/dL (7-20); BUN/CREATININE RATIO 14 (6-20); CALCIUM 9.2 mg/dL (8.5-10.1); CARBON DIOXIDE 28 mmol/L (21-32); CHLORIDE 108 mmol/L (98-107); CREATININE 1.3 mg/dL (0.6-1.0); GFR 38.8; GLUCOSE 96 mg/dL (70-99); POTASSIUM 4.5 mmol/L (3.5-5.1); SODIUM 145 mmol/L (136-145); TOTAL BILIRUBIN 0.4 mg/dL (0.2-1.0); TOTAL PROTEIN 6.6 g/dL (6.4-8.2)
[2019-04-22 07:38] LABS: VAL ACID 86 mcg/mL (50-100)
[2019-04-22] MEDS: LACTOBACILLUS RHAMNOSUS GG 1 CAPSULE. PO SCH ×2 (08:05→19:22)
[2019-04-22] MEDS: DOXYCYCLINE HYCLATE 100 MG TABLET PO SCH ×2 (08:05→19:21)
[2019-04-22] MEDS: PANTOPRAZOLE 40 MG TABLET. PO SCH ×2 (08:05→16:55)
[2019-04-22] MEDS: METOPROLOL TART IMMED RELEASE 25 MG TABLET PO SCH ×2 (08:06→19:22)
[2019-04-22] MEDS: APIXABAN 5 MG TABLET. PO SCH ×2 (08:06→19:20)
[2019-04-22] MEDS: FERROUS SULFATE 325 MG TABLET. PO SCH (08:06)
[2019-04-22] MEDS: DULoxetine HCL 20 MG CAPSULE.DR PO SCH (08:06)
[2019-04-22] MEDS: QUEtiapine 100 MG TABLET. PO SCH ×2 (08:07→19:21)
[2019-04-22] MEDS: NYSTATIN TOPICAL POWDER 15GM BOTTLE. TP SCH ×3 (08:07→19:22)
[2019-04-22] MEDS: DIVALPROEX 125 MG CAP.SPRINK PO SCH ×2 (08:07→19:21)
[2019-04-22] MEDS: clonazePAM 0.5 MG TABLET PO SCH ×2 (08:08→19:24)
[2019-04-22 16:06] VITALS: BP 115/71
[2019-04-22] MEDS: ATORVASTATIN CALCIUM 10 MG TABLET. PO SCH (19:21)
[2019-04-22] MEDS: MIRTAZAPINE 15 MG TABLET PO SCH (19:52)
--- NOTE | 2019-04-22 20:49 | PN ---
DATE: 04/21/2019 PROGRESS NOTE This late entry 04/21/2019 covers elements not covered in my initial note. SUBJECTIVE: I met with the patient evening of 04/21/2019. The patient slept 6-1/[address] head shows nothing acute. Previous night, she was swinging at staff, confused, cursing at staff, sarcastic, labile. REVIEW OF SYSTEMS: Ambulation impaired, in wheelchair. No CV, , pulmonary, eye, ENT system symptoms on review. Reliability poor. MENTAL STATUS EXAM: Oriented to herself. Insight, judgment, recent and remote memory, attention, concentration, fund of knowledge poor, consistent with her diagnosis. She talked at length about having no teeth and admiring the teeth of others around her, quite disorganized, states she is looking for her daughter, totally oblivious of who the daughter is or what her name is. Labs reviewed. IMPRESSION: Major neurocognitive disorder, Alzheimer, vascular with delusion, depression, behavioral disturbance; anxiety disorder, unspecified; impulse control disorder, unspecified. PLAN: Continue current psychotropics including Depakote Sprinkles 250 mg at bedtime. Check CBC, CMP, valproic acid level on the 04/22/2019 and adjust to reach therapeutic level. Maintain Cymbalta, Seroquel along with Klonopin, Remeron and Zyprexa p.r.n. ARMINDA YORK MD DR: GONZALO/layne JOB#: [id number] / [id number]
--- NOTE | 2019-04-22 21:47 | PDOC ---
Exam Note: Jose Note: Please also refer to the separate dictated note~for this date of service dictated separately.~Patient seen individually. Discussed the patient with Nursing staff reviewed the chart.~Reviewed interim history and current functioning. Reviewed vital signs,~Labs/ Radiology~and current medications noted below. Continue current treatment with the changes noted in the dictated addendum note Assessment: Vital Signs/I&O: Vital Signs Date Time Temp Pulse Resp B/P (MAP) Pulse Ox O2 Delivery O2 Flow Rate FiO2 04/22/19 20:11 93 Room Air 04/22/19 19:24 86 115/71 04/22/19 16:06 98.1 18 04/20/19 05:50 2.0 I & O 04/21/19 04/21/19 04/22/19 15:00 23:00 07:00 Intake Total 440 ml 240 ml 100 ml Balance 440 ml 240 ml 100 ml Labs: Laboratory Tests Test 04/22/19 06:55 White Blood Count 8.5 x10^3/uL (4.0-11.0) Red Blood Count 4.15 x10^6/uL (3.50-5.40) Hemoglobin 13.9 g/dL (12.0-15.5) Hematocrit 42.0 % (36.0-47.0) Mean Corpuscular Volume 101 fL (79-100) H Mean Corpuscular Hemoglobin 33 pg (25-35) Mean Corpuscular Hemoglobin Concent 33 g/dL (31-37) Red Cell Distribution Width 15.7 % (11.5-14.5) H Platelet Count 139 x10^3/uL (140-400) L Neutrophils (%) (Auto) 75 % (31-73) H Lymphocytes (%) (Auto) 15 % (24-48) L Monocytes (%) (Auto) 7 % (0-9) Eosinophils (%) (Auto) 3 % (0-3) Basophils (%) (Auto) 1 % (0-3) Neutrophils # (Auto) 6.4 x10^3uL (1.8-7.7) Lymphocytes # (Auto) 1.3 x10^3/uL (1.0-4.8) Monocytes # (Auto) 0.6 x10^3/uL (0.0-1.1) Eosinophils # (Auto) 0.2 x10^3/uL (0.0-0.7) Basophils # (Auto) 0.0 x10^3/uL (0.0-0.2) Sodium Level 145 mmol/L (136-145) Potassium Level 4.5 mmol/L (3.5-5.1) Chloride Level 108 mmol/L (98-107) H Carbon Dioxide Level 28 mmol/L (21-32) Anion Gap 9 (6-14) Blood Urea Nitrogen 18 mg/dL (7-20) Creatinine 1.3 mg/dL (0.6-1.0) H Estimated GFR (Cockcroft-Gault) 38.8 BUN/Creatinine Ratio 14 (6-20) Glucose Level 96 mg/dL (70-99) Calcium Level 9.2 mg/dL (8.5-10.1) Total Bilirubin 0.4 mg/dL (0.2-1.0) Aspartate Amino Transferase (AST) 22 U/L (15-37) Alanine Aminotransferase (ALT) 17 U/L (14-59) Alkaline Phosphatase 78 U/L (46-116) Total Protein 6.6 g/dL (6.4-8.2) Albumin 3.3 g/dL (3.4-5.0) L Albumin/Globulin Ratio 1.0 (1.0-1.7) Valproic Acid Level 86 mcg/mL (50-100) Valproic Acid Last Dose Date 04/21/19 Valproic Acid Last Dose Time 2100 Current Medications: Meds: Current Medications Medications (Trade) Dose Ordered Sig/Ne Route PRN Reason Start Time Stop Time Status Last Admin Dose Admin Mirtazapine (Remeron) 15 mg QHS PO 04/22/19 21:00 04/22/19 19:52 I have reviewed the current psychotropics carefully including drug interactions. Risk benefit ratio favors no change other than as noted in my dictated progress note. Diagnosis: Problems: (1) Anxiety disorder (2) Dementia in Alzheimer's disease with delusions (3) Dementia in Alzheimer's disease with depression (4) Dementia, vascular, with depression (5) Dementia, vascular, with delusions (6) Impulse control disorder (7) Major neurocognitive disorder ARMINDA YORK MD Apr 22, 2019 21:47
[2019-04-23] MEDS: IPRATRPIUM/ALBUTEROL 0.5/2.5MG 3 ML NEBU. NEB SCH ×4 (04:58→19:58)
[2019-04-23 05:46] VITALS: BP 112/75
[2019-04-23] MEDS: LEVOTHYROXINE 88 MCG TABLET PO SCH (06:14)
[2019-04-23] MEDS: DULoxetine HCL 20 MG CAPSULE.DR PO SCH (07:35)
[2019-04-23] MEDS: APIXABAN 5 MG TABLET. PO SCH ×2 (07:35→20:10)
[2019-04-23] MEDS: DOXYCYCLINE HYCLATE 100 MG TABLET PO SCH ×2 (07:35→20:09)
[2019-04-23] MEDS: DIVALPROEX 125 MG CAP.SPRINK PO SCH ×2 (07:35→20:10)
[2019-04-23] MEDS: NYSTATIN TOPICAL POWDER 15GM BOTTLE. TP SCH ×3 (07:35→23:20)
[2019-04-23] MEDS: PANTOPRAZOLE 40 MG TABLET. PO SCH ×2 (07:36→16:35)
[2019-04-23] MEDS: FERROUS SULFATE 325 MG TABLET. PO SCH (07:36)
[2019-04-23] MEDS: QUEtiapine 100 MG TABLET. PO SCH ×2 (07:36→20:10)
[2019-04-23] MEDS: METOPROLOL TART IMMED RELEASE 25 MG TABLET PO SCH ×2 (07:36→20:11)
[2019-04-23] MEDS: LACTOBACILLUS RHAMNOSUS GG 1 CAPSULE. PO SCH ×2 (07:38→20:09)
[2019-04-23] MEDS: clonazePAM 0.5 MG TABLET PO SCH ×2 (07:40→20:12)
[2019-04-23 15:45] VITALS: BP 104/68
[2019-04-23] MEDS: MIRTAZAPINE 15 MG TABLET PO SCH (20:10)
[2019-04-23] MEDS: ATORVASTATIN CALCIUM 10 MG TABLET. PO SCH (20:10)
--- NOTE | 2019-04-23 21:14 | PN ---
DATE: 04/22/2019 PSYCHIATRIC PROGRESS NOTE This is a late entry 04/22/2019, covers the elements not covered in my initial note. SUBJECTIVE: I met with the patient in the evening of 04/22/2019. On several occasions, she would follow me around the unit totally forgetting, we had just met in asking about her daughter. She slept 5-1/2 previous night. She has been confused, delusional, putting herself on the floor the previous night, but compliant with her medications. Morning of 04/22/2019, she was extremely agitated, pinching, kicking staff members, with marked mood lability. Valproic acid level is 86. REVIEW OF SYSTEMS: Ambulation impaired in wheelchair. No CV, , Pulmonary, eye, ENT system symptoms on review. Reliability poor. MENTAL STATUS EXAMINATION: Oriented to herself. Insight and judgment, recent and remote memory, attention, concentration, fund of knowledge poor, consistent with her diagnosis mentioned in my initial note. PLAN: Increase Remeron from 7.5 mg at bedtime to 15 mg at bedtime. Continue Cymbalta, Seroquel, Depakote, especially since the level is therapeutic. She is also on Klonopin 0.25 b.i.d. I had considered that this may be causing paradoxical descend the patient with nursing staff indicates that it actually helps her anxiety, mood lability. We will see how she does with the adjustment of Remeron and then decide further. Consider BuSpar. ARMINDA OYRK MD DR: GONZALO/layne JOB#: [id number] / [id number]
--- NOTE | 2019-04-23 21:23 | PDOC ---
Exam Note: Jose Note: Please also refer to the separate dictated note~for this date of service dictated separately.~Patient seen individually. Discussed the patient with Nursing staff reviewed the chart.~Reviewed interim history and current functioning. Reviewed vital signs,~Labs/ Radiology~and current medications noted below. Continue current treatment with the changes noted in the dictated addendum note Assessment: Vital Signs/I&O: Vital Signs Date Time Temp Pulse Resp B/P (MAP) Pulse Ox O2 Delivery O2 Flow Rate FiO2 04/23/19 20:12 90 115/82 04/23/19 19:59 94 Room Air 04/23/19 15:45 97.2 20 04/20/19 05:50 2.0 I & O 04/22/19 04/22/19 04/23/19 15:00 23:00 07:00 Intake Total 720 ml 720 ml Balance 720 ml 720 ml Current Medications: I have reviewed the current psychotropics carefully including drug interactions. Risk benefit ratio favors no change other than as noted in my dictated progress note. Diagnosis: Problems: (1) Anxiety disorder (2) Dementia in Alzheimer's disease with delusions (3) Dementia in Alzheimer's disease with depression (4) Dementia, vascular, with depression (5) Dementia, vascular, with delusions (6) Impulse control disorder (7) UTI (urinary tract infection) (8) Major neurocognitive disorder (9) Hallucinations, visual ARMINDA YORK MD Apr 23, 2019 21:23
[2019-04-24] MEDS: IPRATRPIUM/ALBUTEROL 0.5/2.5MG 3 ML NEBU. NEB SCH ×4 (05:00→19:49)
[2019-04-24 05:37] VITALS: BP 138/66
[2019-04-24] MEDS: LEVOTHYROXINE 88 MCG TABLET PO SCH (05:57)
[2019-04-24] MEDS: LACTOBACILLUS RHAMNOSUS GG 1 CAPSULE. PO SCH ×2 (09:32→20:53)
[2019-04-24] MEDS: PANTOPRAZOLE 40 MG TABLET. PO SCH ×2 (09:32→17:02)
[2019-04-24] MEDS: METOPROLOL TART IMMED RELEASE 25 MG TABLET PO SCH ×2 (09:33→21:12)
[2019-04-24] MEDS: APIXABAN 5 MG TABLET. PO SCH ×2 (09:34→20:53)
[2019-04-24] MEDS: DOXYCYCLINE HYCLATE 100 MG TABLET PO SCH ×2 (09:34→20:53)
[2019-04-24] MEDS: clonazePAM 0.5 MG TABLET PO SCH ×2 (09:34→20:56)
[2019-04-24] MEDS: DIVALPROEX 125 MG CAP.SPRINK PO SCH ×2 (09:34→20:53)
[2019-04-24] MEDS: FERROUS SULFATE 325 MG TABLET. PO SCH (09:34)
[2019-04-24] MEDS: NYSTATIN TOPICAL POWDER 15GM BOTTLE. TP SCH ×3 (09:35→20:54)
[2019-04-24] MEDS: QUEtiapine 100 MG TABLET. PO SCH ×2 (09:37→20:53)
[2019-04-24 16:25] VITALS: BP 106/66
[2019-04-24] MEDS: MIRTAZAPINE 15 MG TABLET PO SCH (20:53)
[2019-04-24] MEDS: ATORVASTATIN CALCIUM 10 MG TABLET. PO SCH (20:54)
[2019-04-24 21:10] VITALS: BP 121/56
--- NOTE | 2019-04-24 21:29 | PDOC ---
Exam Note: Jose Note: Please also refer to the separate dictated note~for this date of service dictated separately.~Patient seen individually. Discussed the patient with Nursing staff reviewed the chart.~Reviewed interim history and current functioning. Reviewed vital signs,~Labs/ Radiology~and current medications noted below. Continue current treatment with the changes noted in the dictated addendum note Assessment: Vital Signs/I&O: Vital Signs Date Time Temp Pulse Resp B/P (MAP) Pulse Ox O2 Delivery O2 Flow Rate FiO2 04/24/19 21:12 74 121/56 04/24/19 21:10 20 92 Room Air 04/24/19 16:25 97.4 04/20/19 05:50 2.0 I & O 04/23/19 04/23/19 04/24/19 15:00 23:00 07:00 Intake Total 960 ml 480 ml 240 ml Balance 960 ml 480 ml 240 ml Current Medications: Meds: Current Medications Medications (Trade) Dose Ordered Sig/Ne Route PRN Reason Start Time Stop Time Status Last Admin Dose Admin Fluvoxamine Maleate (Luvox) 25 mg DAILY PO 04/24/19 09:00 04/26/19 13:00 04/24/19 09:37 I have reviewed the current psychotropics carefully including drug interactions. Risk benefit ratio favors no change other than as noted in my dictated progress note. Diagnosis: Problems: (1) Anxiety disorder (2) Dementia in Alzheimer's disease with delusions (3) Dementia in Alzheimer's disease with depression (4) Impulse control disorder (5) Dementia, vascular, with depression (6) Dementia, vascular, with delusions (7) Major neurocognitive disorder ARMINDA YORK MD Apr 24, 2019 21:29
[2019-04-25] MEDS: IPRATRPIUM/ALBUTEROL 0.5/2.5MG 3 ML NEBU. NEB SCH ×4 (05:25→22:01)
[2019-04-25 05:26] VITALS: BP 121/77
[2019-04-25] MEDS: LEVOTHYROXINE 88 MCG TABLET PO SCH (06:02)
[2019-04-25] MEDS: LACTOBACILLUS RHAMNOSUS GG 1 CAPSULE. PO SCH ×2 (08:27→19:55)
[2019-04-25] MEDS: PANTOPRAZOLE 40 MG TABLET. PO SCH ×2 (08:27→16:31)
[2019-04-25] MEDS: FERROUS SULFATE 325 MG TABLET. PO SCH (08:27)
[2019-04-25] MEDS: METOPROLOL TART IMMED RELEASE 25 MG TABLET PO SCH ×2 (08:28→19:54)
[2019-04-25] MEDS: APIXABAN 5 MG TABLET. PO SCH ×2 (08:28→19:55)
[2019-04-25] MEDS: DIVALPROEX 125 MG CAP.SPRINK PO SCH ×2 (08:28→19:52)
[2019-04-25] MEDS: DOXYCYCLINE HYCLATE 100 MG TABLET PO SCH ×2 (08:29→19:55)
[2019-04-25] MEDS: QUEtiapine 100 MG TABLET. PO SCH ×2 (08:29→19:54)
[2019-04-25] MEDS: clonazePAM 0.5 MG TABLET PO SCH ×2 (08:30→19:59)
[2019-04-25] MEDS: NYSTATIN TOPICAL POWDER 15GM BOTTLE. TP SCH ×3 (08:30→19:55)
[2019-04-25 16:13] VITALS: BP 111/64
[2019-04-25] MEDS: ATORVASTATIN CALCIUM 10 MG TABLET. PO SCH (19:52)
[2019-04-25] MEDS: MIRTAZAPINE 15 MG TABLET PO SCH (19:55)
--- NOTE | 2019-04-25 21:33 | PDOC ---
Exam Note: Jose Note: Please also refer to the separate dictated note~for this date of service dictated separately.~Patient seen individually. Discussed the patient with Nursing staff reviewed the chart.~Reviewed interim history and current functioning. Reviewed vital signs,~Labs/ Radiology~and current medications noted below. Continue current treatment with the changes noted in the dictated addendum note Assessment: Vital Signs/I&O: Vital Signs Date Time Temp Pulse Resp B/P (MAP) Pulse Ox O2 Delivery O2 Flow Rate FiO2 04/25/19 20:00 96 Room Air 04/25/19 19:56 80 111/64 04/25/19 16:13 97.7 18 04/20/19 05:50 2.0 I & O 04/24/19 04/24/19 04/25/19 15:00 23:00 07:00 Intake Total 600 ml 240 ml 0 ml Balance 600 ml 240 ml 0 ml Current Medications: I have reviewed the current psychotropics carefully including drug interactions. Risk benefit ratio favors no change other than as noted in my dictated progress note. Diagnosis: Problems: (1) Anxiety disorder (2) Dementia in Alzheimer's disease with delusions (3) Dementia in Alzheimer's disease with depression (4) Impulse control disorder (5) Dementia, vascular, with depression (6) Dementia, vascular, with delusions (7) Major neurocognitive disorder ARMINDA YORK MD Apr 25, 2019 21:33
--- NOTE | 2019-04-25 21:41 | PN ---
DATE: 04/23/2019 PSYCHIATRIC PROGRESS NOTE This late entry 04/23/2019 covers elements not covered in my initial note. SUBJECTIVE: I met with the patient in the evening of 04/23/2019. The patient slept 7-3/4 hours previous night. She remains confused, extremely obsessed and fixated on wanting teeth and asking everyone around her to give their teeth to her. She is not wanting dentures, wants real teeth, somewhat delusional, certainly confused, wanting her daughter's teeth, obsessed about this. REVIEW OF SYSTEMS: Ambulation impaired, in wheelchair. No CV, , pulmonary, eye, ENT system symptoms on review. Reliability poor. MENTAL STATUS EXAM: Oriented to herself. Insight, judgment, recent and remote memory, attention, concentration, fund of knowledge poor, consistent with her diagnosis mentioned in my initial note. IMPRESSION: Major neurocognitive disorder; Alzheimer, vascular with delusion, depression, behavioral disturbance; anxiety disorder, unspecified; impulse control disorder, unspecified; obsessive compulsive disorder symptoms. PLAN: Change the Cymbalta to Luvox 25 mg a day for 3 days, then 50 mg a day after that. Maintain Depakote, Seroquel, Klonopin, and Remeron for now. Follow labs level and adjust as clinically indicated. MAN Victor M YORK MD DR: GONZALO/layne JOB#: [id number] / [id number]
--- NOTE | 2019-04-25 21:42 | PN ---
DATE: 04/24/2019 PSYCHIATRIC PROGRESS NOTE This late entry, 04/24, covers the elements not covered in my initial note. The patient slept 7 hours previous night and 7 hours average. Appetite 50-75%. SUBJECTIVE: I met with the patient on the evening of 04/24 and staffed at a treatment team meeting with the entire team, on the morning of 04/24 with the patient's daughter, Lianna, attending. We had a lengthy discussion about her diagnosis, history, medications, prognosis, discharge plans. She remains disorganized, compliant with medications, obsessed about dentures and teeth. The daughter would like a copy of her discharge medications, so she can keep up with this when the patient returns to the [facility]. Nursing staff will make sure of this. REVIEW OF SYSTEMS: Ambulation impaired, in wheelchair. No CV, , pulmonary, eye systems symptoms on review. Reliability poor. MENTAL STATUS EXAM: Oriented to herself. Insight, judgment, recent and remote memory, attention, concentration, fund of knowledge poor, consistent with her diagnosis mentioned in my initial note. PLAN: No change from initial note. We will continue to gradually increase the Luvox for her OCD symptoms. Rest Depakote, Klonopin, Seroquel, and Remeron will continue for now. ARMINDA YORK MD DR: GONZALO/layne JOB#: [id number] / [id number]
[2019-04-26] MEDS: LEVOTHYROXINE 88 MCG TABLET PO SCH (05:07)
[2019-04-26] MEDS: IPRATRPIUM/ALBUTEROL 0.5/2.5MG 3 ML NEBU. NEB SCH ×4 (05:39→19:55)
[2019-04-26 05:49] VITALS: BP 119/66
[2019-04-26] MEDS: PANTOPRAZOLE 40 MG TABLET. PO SCH ×2 (08:17→16:48)
[2019-04-26] MEDS: LACTOBACILLUS RHAMNOSUS GG 1 CAPSULE. PO SCH ×2 (08:17→20:21)
[2019-04-26] MEDS: DIVALPROEX 125 MG CAP.SPRINK PO SCH ×2 (08:17→20:22)
[2019-04-26] MEDS: FERROUS SULFATE 325 MG TABLET. PO SCH (08:17)
[2019-04-26] MEDS: APIXABAN 5 MG TABLET. PO SCH ×2 (08:17→20:23)
[2019-04-26] MEDS: clonazePAM 0.5 MG TABLET PO SCH ×2 (08:20→20:24)
[2019-04-26] MEDS: METOPROLOL TART IMMED RELEASE 25 MG TABLET PO SCH ×2 (08:21→20:22)
[2019-04-26] MEDS: NYSTATIN TOPICAL POWDER 15GM BOTTLE. TP SCH ×3 (08:22→20:24)
[2019-04-26] MEDS: DOXYCYCLINE HYCLATE 100 MG TABLET PO SCH ×2 (08:22→20:23)
[2019-04-26] MEDS: QUEtiapine 100 MG TABLET. PO SCH ×2 (08:22→20:22)
[2019-04-26 15:57] VITALS: BP 112/70
[2019-04-26] MEDS: MIRTAZAPINE 15 MG TABLET PO SCH (20:23)
[2019-04-26] MEDS: ATORVASTATIN CALCIUM 10 MG TABLET. PO SCH (20:23)
[2019-04-26 21:06] LABS: BASO # 0.1 x10^3/uL (0.0-0.2); BASO % 1 % (0-3); EOS # 0.6 x10^3/uL (0.0-0.7); EOS % 7 % (0-3); HEMATOCRIT 42.9 % (36.0-47.0); HEMOGLOBIN 14.1 g/dL (12.0-15.5); LYMPH # 2.8 x10^3/uL (1.0-4.8); LYMPH % 33 % (24-48); MEAN CORPUSCULAR HEMOGLOBIN 34 pg (25-35); MEAN CORPUSCULAR HGB CONC 33 g/dL (31-37); MEAN CORPUSCULAR VOLUME 103 fL (79-100); MONO # 0.8 x10^3/uL (0.0-1.1); MONO % 10 % (0-9); NEUT # 4.1 x10^3uL (1.8-7.7); NEUT % 49 % (31-73); PLATELET COUNT 186 x10^3/uL (140-400); RED BLOOD COUNT 4.17 x10^6/uL (3.50-5.40); WHITE BLOOD COUNT 8.5 x10^3/uL (4.0-11.0)
[2019-04-26 21:21] LABS: ALBUMIN 3.2 g/dL (3.4-5.0); ALBUMIN/GLOBULIN RATIO 0.8 (1.0-1.7); CALCIUM 9.3 mg/dL (8.5-10.1); CREATININE 1.4 mg/dL (0.6-1.0); GFR 35.7; POTASSIUM 4.5 mmol/L (3.5-5.1); TOTAL BILIRUBIN 0.4 mg/dL (0.2-1.0); TOTAL PROTEIN 7.2 g/dL (6.4-8.2)
[2019-04-26 21:36] LABS: % ATYL 4 % (0-0); % BANDS 3 % (0-9); % BASOS 1 % (0-3); % EOS 9 % (0-5); % LYMPHS 32 % (24-48); % METAS 2 % (0-0); % MONOS 6 % (0-10); % MYELOS 1 % (0-0); % SEGS 42 % (35-66)
[2019-04-26 21:37] LABS: PLT ESTIMATE ADEQUATE (ADEQUATE)
[2019-04-26 21:38] LABS: ANISOCYTOSIS SLIGHT
--- NOTE | 2019-04-26 21:45 | RAD ---
EXAM: CHEST 1 VIEW History: Cough, congestion COMPARISON: None available. TECHNIQUE: Single portable radiograph of the chest FINDINGS: Mild cardiomegaly. Large hiatal hernia is identified. The costophrenic sulci are clear and well demarcated. IMPRESSION: 1. Large hiatal hernia. 2. No acute cardiopulmonary findings. Electronically signed by: Marcelino Dietrich MD (04/26/2019 9:42 PM) [facility]
--- NOTE | 2019-04-26 22:49 | PDOC ---
Exam Note: Jose Note: Please also refer to the separate dictated note~for this date of service dictated separately.~Patient seen individually. Discussed the patient with Nursing staff reviewed the chart.~Reviewed interim history and current functioning. Reviewed vital signs,~Labs/ Radiology~and current medications noted below. Continue current treatment with the changes noted in the dictated addendum note Assessment: Vital Signs/I&O: Vital Signs Date Time Temp Pulse Resp B/P (MAP) Pulse Ox O2 Delivery O2 Flow Rate FiO2 04/26/19 20:24 68 112/70 04/26/19 19:56 95 Room Air 04/26/19 15:57 97.3 16 I & O 04/25/19 04/25/19 04/26/19 15:00 23:00 07:00 Intake Total 600 ml 480 ml Balance 600 ml 480 ml Labs: Laboratory Tests Test 04/26/19 20:55 White Blood Count 8.5 x10^3/uL (4.0-11.0) Red Blood Count 4.17 x10^6/uL (3.50-5.40) Hemoglobin 14.1 g/dL (12.0-15.5) Hematocrit 42.9 % (36.0-47.0) Mean Corpuscular Volume 103 fL (79-100) H Mean Corpuscular Hemoglobin 34 pg (25-35) Mean Corpuscular Hemoglobin Concent 33 g/dL (31-37) Red Cell Distribution Width 16.0 % (11.5-14.5) H Platelet Count 186 x10^3/uL (140-400) Neutrophils (%) (Auto) 49 % (31-73) Lymphocytes (%) (Auto) 33 % (24-48) Monocytes (%) (Auto) 10 % (0-9) H Eosinophils (%) (Auto) 7 % (0-3) H Basophils (%) (Auto) 1 % (0-3) Neutrophils # (Auto) 4.1 x10^3uL (1.8-7.7) Lymphocytes # (Auto) 2.8 x10^3/uL (1.0-4.8) Monocytes # (Auto) 0.8 x10^3/uL (0.0-1.1) Eosinophils # (Auto) 0.6 x10^3/uL (0.0-0.7) Basophils # (Auto) 0.1 x10^3/uL (0.0-0.2) Segmented Neutrophils % 42 % (35-66) Band Neutrophils % 3 % (0-9) Lymphocytes % 32 % (24-48) Atypical Lymphocytes % (Manual) 4 % (0-0) H Monocytes % 6 % (0-10) Eosinophils % 9 % (0-5) H Basophils % 1 % (0-3) Metamyelocytes % 2 % (0-0) H Myelocytes % 1 % (0-0) H Platelet Estimate Adequate (ADEQUATE) Anisocytosis Slight Macrocytosis Slight Sodium Level 144 mmol/L (136-145) Potassium Level 4.5 mmol/L (3.5-5.1) Chloride Level 106 mmol/L (98-107) Carbon Dioxide Level 28 mmol/L (21-32) Anion Gap 10 (6-14) Blood Urea Nitrogen 30 mg/dL (7-20) H Creatinine 1.4 mg/dL (0.6-1.0) H Estimated GFR (Cockcroft-Gault) 35.7 BUN/Creatinine Ratio 21 (6-20) H Glucose Level 111 mg/dL (70-99) H Calcium Level 9.3 mg/dL (8.5-10.1) Total Bilirubin 0.4 mg/dL (0.2-1.0) Aspartate Amino Transferase (AST) 17 U/L (15-37) Alanine Aminotransferase (ALT) 13 U/L (14-59) L Alkaline Phosphatase 96 U/L (46-116) Total Protein 7.2 g/dL (6.4-8.2) Albumin 3.2 g/dL (3.4-5.0) L Albumin/Globulin Ratio 0.8 (1.0-1.7) L Current Medications: I have reviewed the current psychotropics carefully including drug interactions. Risk benefit ratio favors no change other than as noted in my dictated progress note. Diagnosis: Problems: (1) Anxiety disorder (2) Dementia in Alzheimer's disease with delusions (3) Dementia in Alzheimer's disease with depression (4) Impulse control disorder (5) Dementia, vascular, with depression (6) Dementia, vascular, with delusions (7) Major neurocognitive disorder ARMINDA YORK MD Apr 26, 2019 22:48
[2019-04-27] MEDS: IPRATRPIUM/ALBUTEROL 0.5/2.5MG 3 ML NEBU. NEB SCH ×4 (05:09→20:03)
[2019-04-27] MEDS: LEVOTHYROXINE 88 MCG TABLET PO SCH (05:22)
[2019-04-27 05:24] VITALS: BP 119/69
[2019-04-27] MEDS: APIXABAN 5 MG TABLET. PO SCH ×2 (08:14→20:11)
[2019-04-27] MEDS: FERROUS SULFATE 325 MG TABLET. PO SCH (08:14)
[2019-04-27] MEDS: DIVALPROEX 125 MG CAP.SPRINK PO SCH ×2 (08:14→20:12)
[2019-04-27] MEDS: LACTOBACILLUS RHAMNOSUS GG 1 CAPSULE. PO SCH ×2 (08:14→20:11)
[2019-04-27] MEDS: PANTOPRAZOLE 40 MG TABLET. PO SCH ×2 (08:14→16:09)
[2019-04-27] MEDS: METOPROLOL TART IMMED RELEASE 25 MG TABLET PO SCH ×2 (08:16→20:12)
[2019-04-27] MEDS: QUEtiapine 100 MG TABLET. PO SCH ×2 (08:16→20:11)
[2019-04-27] MEDS: DOXYCYCLINE HYCLATE 100 MG TABLET PO SCH (08:16)
[2019-04-27] MEDS: NYSTATIN TOPICAL POWDER 15GM BOTTLE. TP SCH ×3 (08:17→20:12)
[2019-04-27] MEDS: clonazePAM 0.5 MG TABLET PO SCH (08:19)
[2019-04-27 15:30] VITALS: BP 115/65
[2019-04-27] MEDS: MIRTAZAPINE 15 MG TABLET PO SCH (20:11)
[2019-04-27] MEDS: ATORVASTATIN CALCIUM 10 MG TABLET. PO SCH (20:11)
--- NOTE | 2019-04-27 20:40 | PN ---
DATE: 04/26/2019 PSYCHIATRIC PROGRESS NOTE This late entry 04/26/2019 covers the elements not covered in my initial note. SUBJECTIVE: I met with the patient in the evening of 04/26/2019. The patient still remains somewhat obsessive about her teeth. Previous night, she was talking and laughing to herself questionably psychotic. During the day on 04/26/2019, she was agitated at one time with nursing staff, cursing, but then redirected. Very pleasant with me individually, but still focused on her teeth. REVIEW OF SYSTEMS: Ambulation impaired, in wheelchair. No CV, , pulmonary, eye system symptoms on review. MENTAL STATUS EXAM: Oriented to herself. Insight, judgment, recent and remote memory, attention, concentration, fund of knowledge poor, consistent with her diagnosis mentioned in my initial note. PLAN: Continue current psychotropics mentioned in my initial note, gradually taper the Klonopin, currently 0.25 mg b.i.d. We will reduce 2.25 mg once a day. Rest unchanged. MAN Victor M YORK MD DR: GONZALO/layne JOB#: [id number] / [id number]
--- NOTE | 2019-04-27 20:42 | PN ---
DATE: 04/25/2019 This late entry 04/25/2019, covers elements not covered in my initial note. SUBJECTIVE: I met with the patient evening of 04/25/2019. The patient slept 9-1/2 hours previous night. The patient remains somewhat obsessive about her teeth and this was more evident previous night, less during the day on 04/25/2019. She still remains disorganized, remains on doxycycline for her UTI. REVIEW OF SYSTEMS: Ambulation impaired, in wheelchair. No CV, , pulmonary, eye system symptoms on review. MENTAL STATUS EXAM: Oriented to herself. Insight, judgment, recent and remote memory, attention, concentration, fund of knowledge poor, consistent with her diagnosis mentioned in my initial note. PLAN: No change from initial note. Luvox is being increased gradually and she remains on Seroquel, Depakene/Depakote Sprinkles, Klonopin, which we may try and reduce along and she remains on Remeron and Zyprexa p.r.n. MAN Victor M YORK MD DR: GONZALO/layne JOB#: [id number] / [id number]
--- NOTE | 2019-04-27 21:26 | PDOC ---
Exam Note: Jose Note: Please also refer to the separate dictated note~for this date of service dictated separately.~Patient seen individually. Discussed the patient with Nursing staff reviewed the chart.~Reviewed interim history and current functioning. Reviewed vital signs,~Labs/ Radiology~and current medications noted below. Continue current treatment with the changes noted in the dictated addendum note Assessment: Vital Signs/I&O: Vital Signs Date Time Temp Pulse Resp B/P (MAP) Pulse Ox O2 Delivery O2 Flow Rate FiO2 04/27/19 20:12 74 115/65 04/27/19 20:04 95 Room Air 04/27/19 15:30 97.1 16 04/27/19 05:24 2.0 I & O 04/26/19 04/26/19 04/27/19 15:00 23:00 07:00 Intake Total 720 ml 360 ml Balance 720 ml 360 ml Current Medications: Meds: Current Medications Medications (Trade) Dose Ordered Sig/Ne Route PRN Reason Start Time Stop Time Status Last Admin Dose Admin Fluvoxamine Maleate (Luvox) 50 mg DAILY PO 04/27/19 09:00 04/27/19 08:20 Clonazepam (KlonoPIN) 0.25 mg DAILY PO 04/27/19 09:00 04/27/19 08:20 I have reviewed the current psychotropics carefully including drug interactions. Risk benefit ratio favors no change other than as noted in my dictated progress note. 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
[2019-04-28] MEDS ORDERED: MAGNESIUM HYDROXIDE 2,400 MG/30 ML ORAL.SUSP. PO PRN (02:30)
[2019-04-28] MEDS: IPRATRPIUM/ALBUTEROL 0.5/2.5MG 3 ML NEBU. NEB SCH ×4 (05:08→20:06)
[2019-04-28] MEDS: LEVOTHYROXINE 88 MCG TABLET PO SCH (05:22)
[2019-04-28 05:49] VITALS: BP 130/77
[2019-04-28] MEDS: PANTOPRAZOLE 40 MG TABLET. PO SCH ×2 (07:37→16:40)
[2019-04-28] MEDS: APIXABAN 5 MG TABLET. PO SCH ×2 (07:38→20:07)
[2019-04-28] MEDS: LACTOBACILLUS RHAMNOSUS GG 1 CAPSULE. PO SCH ×2 (07:38→20:05)
[2019-04-28] MEDS: DIVALPROEX 125 MG CAP.SPRINK PO SCH ×2 (07:38→20:05)
[2019-04-28] MEDS: FERROUS SULFATE 325 MG TABLET. PO SCH (07:38)
[2019-04-28] MEDS: METOPROLOL TART IMMED RELEASE 25 MG TABLET PO SCH ×2 (07:39→20:07)
[2019-04-28] MEDS: QUEtiapine 100 MG TABLET. PO SCH ×2 (07:40→20:07)
[2019-04-28] MEDS: NYSTATIN TOPICAL POWDER 15GM BOTTLE. TP SCH ×3 (07:43→20:07)
[2019-04-28] MEDS: clonazePAM 0.5 MG TABLET PO SCH (07:43)
[2019-04-28 16:01] VITALS: BP 134/85
[2019-04-28] MEDS: ATORVASTATIN CALCIUM 10 MG TABLET. PO SCH (20:05)
[2019-04-28] MEDS: MIRTAZAPINE 15 MG TABLET PO SCH (20:05)
--- NOTE | 2019-04-28 21:34 | PDOC ---
Exam Note: Jose Note: Please also refer to the separate dictated note~for this date of service dictated separately.~Patient seen individually. Discussed the patient with Nursing staff reviewed the chart.~Reviewed interim history and current functioning. Reviewed vital signs,~Labs/ Radiology~and current medications noted below. Continue current treatment with the changes noted in the dictated addendum note Assessment: Vital Signs/I&O: Vital Signs Date Time Temp Pulse Resp B/P (MAP) Pulse Ox O2 Delivery O2 Flow Rate FiO2 04/28/19 20:07 75 134/85 04/28/19 20:07 95 Room Air 04/28/19 16:01 97.2 16 04/27/19 05:24 2.0 I & O 04/27/19 04/27/19 04/28/19 14:59 22:59 06:59 Intake Total 840 ml 480 ml Balance 840 ml 480 ml Current Medications: Meds: Current Medications Medications (Trade) Dose Ordered Sig/Ne Route PRN Reason Start Time Stop Time Status Last Admin Dose Admin Magnesium Hydroxide (Milk Of Magnesia) 2,400 mg PRN DAILY PRN PO CONSTIPATION 04/28/19 02:30 04/28/19 05:22 I have reviewed the current psychotropics carefully including drug interactions. Risk benefit ratio favors no change other than as noted in my dictated progress note. 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
--- NOTE | 2019-04-28 22:01 | PN ---
DATE: 04/27/2019 PSYCHIATRIC PROGRESS NOTE This late entry 04/27/2019 covers elements not covered in my initial note. SUBJECTIVE: I met with the patient evening of 04/27/2019. The patient slept 8-1/4 hours previous night. neuropsychology service director, she was agitated, combative, yelling with cares, had a moist cough, possible aspiration. Chest x-ray is negative. Swallow study is being arranged. She remains somewhat obsessive, wanting everyone's teeth is permanent teeth rather than dentures for herself. REVIEW OF SYSTEMS: Positive for impaired ambulation in a wheelchair. No CV, , pulmonary, eye system symptoms on review. MENTAL STATUS EXAM: Oriented to herself. Insight, judgment, recent and remote memory, attention, concentration, fund of knowledge poor, consistent with her diagnosis mentioned in my initial note. PLAN: No change from initial note, but we will go ahead and increase the Luvox from 50 mg a day to 75 mg a day after she has been on 50 mg for 3 days. MAN Victor M YORK MD DR: GONZALO/layne JOB#: [id number] / [id number]
[2019-04-29] MEDS: IPRATRPIUM/ALBUTEROL 0.5/2.5MG 3 ML NEBU. NEB SCH ×4 (05:06→21:52)
[2019-04-29] MEDS: LEVOTHYROXINE 88 MCG TABLET PO SCH (05:21)
[2019-04-29 05:48] VITALS: BP 114/79
[2019-04-29] MEDS: LACTOBACILLUS RHAMNOSUS GG 1 CAPSULE. PO SCH ×2 (07:32→20:17)
[2019-04-29] MEDS: FERROUS SULFATE 325 MG TABLET. PO SCH (07:32)
[2019-04-29] MEDS: APIXABAN 5 MG TABLET. PO SCH ×2 (07:32→20:19)
[2019-04-29] MEDS: QUEtiapine 100 MG TABLET. PO SCH ×2 (07:32→20:17)
[2019-04-29] MEDS: PANTOPRAZOLE 40 MG TABLET. PO SCH ×2 (07:32→16:51)
[2019-04-29] MEDS: DIVALPROEX 125 MG CAP.SPRINK PO SCH ×2 (07:32→20:16)
[2019-04-29] MEDS: METOPROLOL TART IMMED RELEASE 25 MG TABLET PO SCH ×2 (07:33→20:19)
[2019-04-29] MEDS: clonazePAM 0.5 MG TABLET PO SCH (07:34)
[2019-04-29] MEDS: NYSTATIN TOPICAL POWDER 15GM BOTTLE. TP SCH ×3 (07:34→20:20)
[2019-04-29 15:35] VITALS: BP 119/57
[2019-04-29] MEDS: MIRTAZAPINE 15 MG TABLET PO SCH (20:16)
[2019-04-29] MEDS: ATORVASTATIN CALCIUM 10 MG TABLET. PO SCH (20:17)
--- NOTE | 2019-04-29 21:44 | PDOC ---
Exam Note: Jose Note: Please also refer to the separate dictated note~for this date of service dictated separately.~Patient seen individually. Discussed the patient with Nursing staff reviewed the chart.~Reviewed interim history and current functioning. Reviewed vital signs,~Labs/ Radiology~and current medications noted below. Continue current treatment with the changes noted in the dictated addendum note Assessment: Vital Signs/I&O: Vital Signs Date Time Temp Pulse Resp B/P (MAP) Pulse Ox O2 Delivery O2 Flow Rate FiO2 04/29/19 20:20 79 119/57 04/29/19 20:20 95 Room Air 04/29/19 15:35 97.9 20 04/27/19 05:24 2.0 I & O 04/28/19 04/28/19 04/29/19 14:59 22:59 06:59 Intake Total 360 ml 240 ml Balance 360 ml 240 ml Current Medications: I have reviewed the current psychotropics carefully including drug interactions. Risk benefit ratio favors no change other than as noted in my dictated progress note. 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
--- NOTE | 2019-04-30 01:16 | PN ---
DATE: 04/28/2019 PROGRESS NOTE This late entry 04/28/2019 covers elements not covered in my initial note. SUBJECTIVE: I met with the patient evening of 04/28/2019. The patient slept 6-1/4 hours previous night. She has had some coughing and wheezing. Swallow study will be completed on 04/29/2019. She is on dysphagia 2 diet. She gets her medications crushed. She remains somewhat obsessive, anxious, wanting everyone's teeth. REVIEW OF SYSTEMS: Ambulation impaired, in wheelchair. No CV, , pulmonary, eye, ENT system symptoms on review. Reliability poor. MENTAL STATUS EXAM: Oriented to herself. Insight, judgment, recent and remote memory, attention, concentration, fund of knowledge poor, consistent with her diagnosis mentioned in my initial note. PLAN: No change from initial note. MAN Victor M YORK MD DR: GONZALO/layne JOB#: [id number] / [id number]
[2019-04-30] MEDS: LEVOTHYROXINE 88 MCG TABLET PO SCH (05:16)
[2019-04-30 05:55] VITALS: BP 115/73
[2019-04-30] MEDS: IPRATRPIUM/ALBUTEROL 0.5/2.5MG 3 ML NEBU. NEB SCH ×4 (06:01→22:47)
[2019-04-30] MEDS: APIXABAN 5 MG TABLET. PO SCH ×2 (08:07→19:33)
[2019-04-30] MEDS: LACTOBACILLUS RHAMNOSUS GG 1 CAPSULE. PO SCH ×2 (08:07→19:35)
[2019-04-30] MEDS: FERROUS SULFATE 325 MG TABLET. PO SCH (08:07)
[2019-04-30] MEDS: DIVALPROEX 125 MG CAP.SPRINK PO SCH ×2 (08:07→19:35)
[2019-04-30] MEDS: METOPROLOL TART IMMED RELEASE 25 MG TABLET PO SCH ×2 (08:07→19:35)
[2019-04-30] MEDS: NYSTATIN TOPICAL POWDER 15GM BOTTLE. TP SCH ×3 (08:08→19:36)
[2019-04-30] MEDS: QUEtiapine 100 MG TABLET. PO SCH ×2 (08:08→19:36)
[2019-04-30] MEDS: PANTOPRAZOLE 40 MG TABLET. PO SCH ×2 (08:08→16:19)
[2019-04-30] MEDS: clonazePAM 0.5 MG TABLET PO SCH (08:10)
[2019-04-30 16:16] VITALS: BP 129/61
[2019-04-30] MEDS: ATORVASTATIN CALCIUM 10 MG TABLET. PO SCH (19:33)
[2019-04-30] MEDS: MIRTAZAPINE 15 MG TABLET PO SCH (19:33)
--- NOTE | 2019-04-30 21:35 | PDOC ---
Exam Note: Jose Note: Please also refer to the separate dictated note~for this date of service dictated separately.~Patient seen individually. Discussed the patient with Nursing staff reviewed the chart.~Reviewed interim history and current functioning. Reviewed vital signs,~Labs/ Radiology~and current medications noted below. Continue current treatment with the changes noted in the dictated addendum note Assessment: Vital Signs/I&O: Vital Signs Date Time Temp Pulse Resp B/P (MAP) Pulse Ox O2 Delivery O2 Flow Rate FiO2 04/30/19 20:20 94 Room Air 04/30/19 19:36 61 129/61 04/30/19 16:16 97.8 18 04/27/19 05:24 2.0 I & O 04/29/19 04/29/19 04/30/19 15:00 23:00 07:00 Intake Total 720 ml 480 ml Balance 720 ml 480 ml Current Medications: Meds: Current Medications Medications (Trade) Dose Ordered Sig/Ne Route PRN Reason Start Time Stop Time Status Last Admin Dose Admin Fluvoxamine Maleate (Luvox) 75 mg DAILY PO 04/30/19 09:00 04/30/19 08:11 I have reviewed the current psychotropics carefully including drug interactions. Risk benefit ratio favors no change other than as noted in my dictated progress note. 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
--- NOTE | 2019-04-30 22:55 | PN ---
DATE: 04/29/2019 PSYCHIATRIC PROGRESS NOTE This late entry 04/29/2019 covers elements not covered in my initial note. SUBJECTIVE: I met with the patient evening of 04/29/2019. The patient slept 7-1/2 hours previous night. Overall, she had a good day, combative in the morning, curses a lot per nursing staff. She still obsessed wanting real teeth. As I met with her, she was fixated on this, but able to understand. She has some dentures that her daughter has. She is very pleased to understand that I had talked to her daughter about this. REVIEW OF SYSTEMS: Ambulation impaired, in wheelchair. No CV, , pulmonary, eye, ENT system symptoms on review. Reliability poor. MENTAL STATUS EXAM: Oriented to herself. Insight, judgment, recent and remote memory, attention, concentration, fund of knowledge poor, consistent with her diagnosis mentioned in my initial note. PLAN: No change from initial note. ARMINDA YORK MD DR: GONZALO/layne JOB#: [id number] / [id number]
[2019-05-01] MEDS: LEVOTHYROXINE 88 MCG TABLET PO SCH (05:07)
[2019-05-01] MEDS: IPRATRPIUM/ALBUTEROL 0.5/2.5MG 3 ML NEBU. NEB SCH ×2 (06:15→09:56)
[2019-05-01 06:24] VITALS: BP 105/54
[2019-05-01] MEDS: DIVALPROEX 125 MG CAP.SPRINK PO SCH (07:59)
[2019-05-01] MEDS: LACTOBACILLUS RHAMNOSUS GG 1 CAPSULE. PO SCH (08:00)
[2019-05-01] MEDS: PANTOPRAZOLE 40 MG TABLET. PO SCH (08:00)
[2019-05-01 08:01] VITALS: BP 105/54
[2019-05-01] MEDS: METOPROLOL TART IMMED RELEASE 25 MG TABLET PO SCH (08:01)
[2019-05-01] MEDS: APIXABAN 5 MG TABLET. PO SCH (08:01)
[2019-05-01] MEDS: QUEtiapine 100 MG TABLET. PO SCH (08:01)
[2019-05-01] MEDS: FERROUS SULFATE 325 MG TABLET. PO SCH (08:01)
[2019-05-01] MEDS: NYSTATIN TOPICAL POWDER 15GM BOTTLE. TP SCH ×2 (08:02→14:00)
[2019-05-01] MEDS: clonazePAM 0.5 MG TABLET PO SCH (08:07)
[2019-05-01 15:45] LABS: HEMATOCRIT 40.8 % (36.0-47.0); HEMOGLOBIN 13.1 g/dL (12.0-15.5); RED BLOOD COUNT 3.9 x10^6/uL (3.50-5.40); RED CELL DISTRIBUTION WIDTH 16.6 % (11.5-14.5); WHITE BLOOD COUNT 10.5 x10^3/uL (4.0-11.0)
[2019-05-01 16:08] LABS: ALBUMIN 3.2 g/dL (3.4-5.0); ALBUMIN/GLOBULIN RATIO 0.9 (1.0-1.7); CALCIUM 9.1 mg/dL (8.5-10.1); CREATININE 1.4 mg/dL (0.6-1.0); GFR 35.7; POTASSIUM 4.4 mmol/L (3.5-5.1); TOTAL BILIRUBIN 0.3 mg/dL (0.2-1.0); TOTAL PROTEIN 6.9 g/dL (6.4-8.2)
[2019-05-01] MEDS ORDERED: ACET160O49 PO (19:58)
[2019-05-01] MEDS ORDERED: ATOR10TA PO (19:58)
[2019-05-01] MEDS ORDERED: APIX5TAB3 PO (19:58)
[2019-05-01] MEDS ORDERED: QUET100T4 PO (20:00)
[2019-05-01] MEDS ORDERED: IPRA3AMP29 NEB (20:00)
[2019-05-01] MEDS ORDERED: DULO20CA50 PO (20:00)
[2019-05-01] MEDS ORDERED: METO25TA4 PO (20:00)
[2019-05-01] MEDS ORDERED: LACT1CAP21 PO (20:00)
[2019-05-01] MEDS ORDERED: FERR325T3 PO (20:00)
[2019-05-01] MEDS ORDERED: ERGO500027 PO (20:00)
[2019-05-01] MEDS ORDERED: LEVO88TA4 PO (20:00)
[2019-05-01] MEDS ORDERED: CLON0.5T11 PO (20:00)
[2019-05-01] MEDS ORDERED: NYST15PO9 TP (20:00)
[2019-05-01] MEDS ORDERED: PANT40TA5 PO (20:00)
[2019-05-01] MEDS ORDERED: ONDA4TAB7 PO (20:00)
[2019-05-01] MEDS ORDERED: DIVA125C2 PO (20:00)
--- NOTE | 2019-05-01 21:38 | PDOC ---
Exam Note: Jose Note: Please also refer to the separate dictated note~for this date of service dictated separately.~Patient seen individually. Discussed the patient with Nursing staff reviewed the chart.~Reviewed interim history and current functioning. Reviewed vital signs,~Labs/ Radiology~and current medications noted below. Continue current treatment with the changes noted in the dictated addendum note Assessment: Vital Signs/I&O: Vital Signs Date Time Temp Pulse Resp B/P (MAP) Pulse Ox O2 Delivery O2 Flow Rate FiO2 05/01/19 09:57 Room Air 05/01/19 08:07 80 105/54 05/01/19 06:24 97.1 20 92 04/27/19 05:24 2.0 I & O 04/30/19 04/30/19 05/01/19 14:59 22:59 06:59 Intake Total 360 ml 240 ml 120 ml Balance 360 ml 240 ml 120 ml Labs: Laboratory Tests Test 05/01/19 15:30 White Blood Count 10.5 x10^3/uL (4.0-11.0) Red Blood Count 3.90 x10^6/uL (3.50-5.40) Hemoglobin 13.1 g/dL (12.0-15.5) Hematocrit 40.8 % (36.0-47.0) Mean Corpuscular Volume 104 fL (79-100) H Mean Corpuscular Hemoglobin 34 pg (25-35) Mean Corpuscular Hemoglobin Concent 32 g/dL (31-37) Red Cell Distribution Width 16.6 % (11.5-14.5) H Platelet Count 155 x10^3/uL (140-400) D-Dimer (Sandrine) < 0.19 mg/L (0.00-0.50) Sodium Level 147 mmol/L (136-145) H Potassium Level 4.4 mmol/L (3.5-5.1) Chloride Level 110 mmol/L (98-107) H Carbon Dioxide Level 32 mmol/L (21-32) Anion Gap 5 (6-14) L Blood Urea Nitrogen 27 mg/dL (7-20) H Creatinine 1.4 mg/dL (0.6-1.0) H Estimated GFR (Cockcroft-Gault) 35.7 BUN/Creatinine Ratio 19 (6-20) Glucose Level 135 mg/dL (70-99) H Lactic Acid Level 3.3 mmol/L (0.4-2.0) H Calcium Level 9.1 mg/dL (8.5-10.1) Total Bilirubin 0.3 mg/dL (0.2-1.0) Aspartate Amino Transferase (AST) 16 U/L (15-37) Alanine Aminotransferase (ALT) 12 U/L (14-59) L Alkaline Phosphatase 73 U/L (46-116) Creatine Kinase 43 U/L (26-192) Troponin I Quantitative < 0.017 ng/mL (0-0.055) Total Protein 6.9 g/dL (6.4-8.2) Albumin 3.2 g/dL (3.4-5.0) L Albumin/Globulin Ratio 0.9 (1.0-1.7) L Current Medications: I have reviewed the current psychotropics carefully including drug interactions. Risk benefit ratio favors no change other than as noted in my dictated progress note. Diagnosis: Problems: (1) Dementia in Alzheimer's disease with delusions (2) Anxiety disorder (3) Dementia in Alzheimer's disease with depression (4) Impulse control disorder (5) Dementia, vascular, with delusions (6) Dementia, vascular, with depression (7) Major neurocognitive disorder (8) Obsessive compulsive disorder ARMINDA YORK MD May 01, 2019 21:38
--- NOTE | 2019-05-02 18:51 | PN ---
DATE: 04/30/2019 PSYCHIATRIC PROGRESS NOTE This late entry 04/30/2019 covers elements not covered in my initial note. SUBJECTIVE: I met with the patient in the evening of 04/30/2019. The patient slept 7 hours previous night. Her diet has been downgraded to pureed diet, honey thickened liquids. She has been joking with staff, easier to redirect, less obsessed and fixated on wanting teeth. Able to accept that she might be okay with dentures. I addressed this with her individually. REVIEW OF SYSTEMS: Ambulation impaired, in wheelchair. No CV, , pulmonary, eye system symptoms on review. MENTAL STATUS EXAM: Oriented to herself. Insight, judgment, recent and remote memory, attention, concentration, fund of knowledge poor, consistent with her diagnosis mentioned in my initial note. PLAN: No change from initial note. MAN Victor M YORK MD DR: GONZALO/layne JOB#: [id number] / [id number]
--- NOTE | 2019-05-02 18:53 | PN ---
DATE: 05/01/2019 PSYCHIATRIC PROGRESS NOTE This late entry 05/01/2019 covers elements not covered in my initial note. SUBJECTIVE: I met with the patient evening of 05/01/2019 and staffed at a treatment team meeting with the entire team in the morning. The patient's daughter, Lianna, attended the treatment team meeting and we reviewed the patient's history, diagnosis, progress, improvement in her obsessiveness about the teeth and her irritability. REVIEW OF SYSTEMS: Ambulation impaired, in wheelchair. No CV, , pulmonary, eye, ENT system symptoms on review. Reliability poor. MENTAL STATUS EXAM: Oriented to herself. Insight, judgment, recent and remote memory, attention, concentration, fund of knowledge poor, consistent with her diagnosis. She is sleeping average 7 hours. Appetite 50-75%. IMPRESSION: Unchanged from initial note. PLAN: Go ahead and stop the Klonopin 0.25 mg daily. Maintain the Luvox, which is being increased to 75 mg a day. Continue Depakote, Seroquel, Zyprexa, p.r.n. Remeron. Valproic acid level therapeutic at 86. MAN Victor M YORK MD DR: GONZALO/layne JOB#: [id number] / [id number]
--- NOTE | 2019-05-04 04:26 | DS ---
DATE OF DISCHARGE: 05/01/2019 DISCHARGE SUMMARY AND PSYCHIATRIC PROGRESS NOTE This is a late entry, date of service 05/01/2019 covers elements not covered in my initial note. REASON FOR ADMISSION: Please refer to the admission history for details. Briefly, the patient is an 88-year-old female referred to us from [facility] by her primary care physician on account of active visual hallucinations. She was reportedly fighting with invisible persons and had conversations with them. She was yelling, combative at staff, kicking, name calling, and verbally aggressive. She had failed outpatient psychiatric interventions. SIGNIFICANT FINDINGS AND CLINICAL COURSE: Following admission, the patient was seen daily individually by myself from a psychiatric standpoint, medical followup per Dr. Gaytan. The patient is quite confused, oriented to herself, extremely obsessive, anxious, wanting everyone's teeth. She is edentulous, has not been able to fit into dentures and we discussed this with her daughter, Lianna, at length. Daughter has some smaller dentures to assist, but the patient is only wanting real teeth. She is extremely agitated with marked mood lability, confused. Adjustments were made in her psychotropics and she seemed to be responding somewhat to Luvox 50 mg daily for her obsessive thought processes, Seroquel 100 mg q. 12 hours, Depakote Sprinkles 375 mg at bedtime, Klonopin was at 0.25 mg daily, but was stopped prior to discharge and she was on Remeron 15 mg at bedtime, Depakote Sprinkles 250 mg in the morning, and Zyprexa p.r.n. Overall, psychiatrically, patient was showing improvement with her agitation, though she remained confused. She was less obsessive and disruptive and aggressive. Nevertheless, at this stage, she had an episode of choking, rapid response was called. She was having marked dysphagia and she was transferred to the ICU Medical/Surgical Floor per Dr. Gaytan. REVIEW OF SYSTEMS: Prior to discharge on 05/01/2019, ambulation impaired. No CV, , pulmonary, eye, ENT system symptoms on review. She was in a wheelchair. MENTAL STATUS EXAM: Oriented to herself. Insight, judgment, recent and remote memory, attention, concentration, fund of knowledge poor, consistent with her diagnosis. FINAL DIAGNOSES: Major neurocognitive disorder, Alzheimer, vascular with delusion, depression, behavioral disturbance; anxiety disorder, unspecified; impulse control disorder, unspecified; aspiration. Rest diagnoses unchanged from admission. DISCHARGE MEDICATIONS: Please refer to the MRAD. DISCHARGE INSTRUCTIONS: Once the patient is medically stable, if behaviorally she is still having mood lability and agitation, we will have her back on our unit. Otherwise, she can transition to the group home. Time for discharge day management greater than 30 minutes. ARMINDA YORK MD DR: GONZALO/layne JOB#: [id number] / [id number]
== END 2019-05-01 15:45 | disposition short-term general hospital (02) | DRG 57 ==
LOC: ER 12:17 → GEROPSY 15:17
PROVIDERS: ADMIT Psychiatry & Neurology Psychiatry; ATTEND Psychiatry & Neurology Psychiatry
DX: G30.9 Alzheimer's disease, unspecified (principal); N39.0 Urinary tract infection, site not specified; F41.9 Anxiety disorder, unspecified; F63.9 Impulse disorder, unspecified; F02.80 Dementia in other diseases classified elsewhere, unspecified severity, without behavioral disturbance, psychotic disturbance, mood disturbance, and anxiety; F01.50 Vascular dementia, unspecified severity, without behavioral disturbance, psychotic disturbance, mood disturbance, and anxiety; E03.9 Hypothyroidism, unspecified; E78.5 Hyperlipidemia, unspecified; F20.9 Schizophrenia, unspecified; F31.9 Bipolar disorder, unspecified; F42.9 Obsessive-compulsive disorder, unspecified; I12.9 Hypertensive chronic kidney disease with stage 1 through stage 4 chronic kidney disease, or unspecified chronic kidney disease; J45.909 Unspecified asthma, uncomplicated; K21.9 Gastro-esophageal reflux disease without esophagitis; M19.90 Unspecified osteoarthritis, unspecified site; M81.0 Age-related osteoporosis without current pathological fracture; N18.3 Chronic kidney disease, stage 3 (moderate); Z66 Do not resuscitate
CPT/HCPCS: 36415; 70450; 71045; 80053; 80061; 80164; 81001; 82306; 82550; 83036; 83540; 83550; 83605; 83735; 84436; 84443; 84480; 84484; 85007; 85025; 85027; 85379; 85610; 86592; 87086; 87186; 93005; 94640; J7620; 92610; 99285-25

== ENCOUNTER 2019-05-01 15:34 | Inpatient (IN) | payer MEDICARE, OTHER ==
[~2019-05-01] VITALS: Ht 160 cm; Wt 66.8 kg
[2019-05-01] VITALS (8 sets, daily range): BP systolic 119–161; BP diastolic 60–79
[~2019-05-01 15:34] MED LIST: ACET160O49 PO; APIX5TAB3 PO; ATOR10TA PO; CLON0.5T11 PO; DIVA125C2 PO; DULO20CA50 PO; ERGO500027 PO; FERR325T3 PO; IPRA3AMP29 NEB; LACT1CAP21 PO; LEVO88TA4 PO; METO25TA4 PO; NYST1000 PO; NYST15PO9 TP; ONDA4TAB7 PO; PANT40TA5 PO; QUET100T4 PO
--- NOTE | 2019-05-01 16:00 | RAD ---
Examination: CT HEAD WO CONTRAST History: Post code Comparison/Correlation: 04/18/2019 CT head without contrast Findings: Axial images of the head were obtained without contrast. No intracranial hemorrhage, midline shift, or mass effect. Globes and optic nerves are unremarkable. 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 Chavez-white matter differentiation is unremarkable. Atrophy and chronic ischemic changes white matter are again seen. No depressed fracture. Impression: No suspicious process. No significant change. PQRS Compliance Statement: One or more of the following individualized dose reduction techniques were utilized for this examination: 1. Automated exposure control 2. Adjustment of the mA and/or kV according to patient size 3. Use of iterative reconstruction technique Electronically signed by: Leonid Dooley MD (05/01/2019 3:57 PM) [facility]
[2019-05-01] MEDS ORDERED: IPRATRPIUM/ALBUTEROL 0.5/2.5MG 3 ML NEBU. ONE (16:01)
--- NOTE | 2019-05-01 16:20 | RAD ---
Examination: PORTABLE CHEST 1V History: Post code Comparison/Correlation: 04/26/2019 AP view of the chest Findings: Portable upright frontal view of the chest was obtained. Mild cardiomegaly is present. Moderate-sized hiatal hernia is suspected. No pneumothorax. Elevation right hemidiaphragm is present. Minimal linear atelectasis or scarring involves the right lung base. Impression: No new infiltrate. Hiatal hernia. Electronically signed by: Leonid Dooley MD (05/01/2019 4:17 PM) [facility]
[2019-05-01] MEDS: IV NORMAL SALINE 1,000ML 1,000 ML IV SCH ×2 (16:45→20:16)
--- NOTE | 2019-05-01 17:09 | HP ---
ADMIT DATE: 05/01/2019 ATTENDING PHYSICIAN: Dr. Mills. CHIEF COMPLAINT: Coughing spell and arrest. HISTORY OF PRESENT ILLNESS: The patient is an 88-year-old female admitted several days ago to the [facility]. She coughed, choked, she had an episode where she lost consciousness. She is a DNR per advanced directives based on her chart. She was resuscitated. We did not have to shock her. She had a rhythm. She was given supplemental oxygen and IV started, fluids administered. About an hour later by the time we got her down to the medical unit, she was talking. She moved all extremities. She did not remember what happened. She has a baseline dementia with confusion. From a respiratory standpoint, there is coarse rhonchi. An urgent CT of the head was done due to her syncopal episode. I suspect she may have had a vasovagal episode causing her to pass out. The patient then will be admitted to the medical floor with monitoring. Empiric antibiotics have been started in case of further aspiration from her history. PAST MEDICAL HISTORY: Significant for profound dementia. She has been at [facility] in [place]. She has been physically combative towards staff, kicking, name calling, verbally aggressive. She has a history of hallucinatory situation. No suicidal or hormonal ideation. She has chronic kidney disease stage 3, osteoporosis, essential hypertension and mild COPD. ALLERGIES: None. CODE STATUS: DNR, no family here. FAMILY HISTORY: I could not obtain. SOCIAL HISTORY: No history of alcohol, drug abuse or sexual disorder, elder abuse. MEDICATIONS: She was taking Remeron. She was taking Eliquis, Lipitor, Klonopin, Cymbalta, vitamin D2, ferrous sulfate, lactobacillus, metoprolol, Synthroid, Protonix, and Seroquel. REVIEW OF SYSTEMS: Unobtainable due to the patient's mental state. PHYSICAL EXAMINATION: GENERAL: When I saw her, this is a pleasantly confused elderly female. INITIAL VITAL SIGNS: Showed a blood pressure of 120 systolic. She was afebrile. HEENT: Head is without trauma. The pupils are reactive. Sclerae are nonicteric. The oropharynx is clear. NECK: Supple. LUNGS: Coarse rhonchi bilaterally with minimal wheezing. CARDIOVASCULAR: Showed regular heart tones. No obvious gallops. Peripheral pulses are palpable and full. ABDOMEN: Soft, scaphoid, nontender. No obstruction, bowel sounds are hypoactive. EXTREMITIES: Show no cyanosis. Trace edema, nonpitting. NEUROLOGIC: The patient is pleasant, she is not combative. She is not aware of person, place or time. The resting 12-lead electrocardiogram done earlier showed a sinus rhythm, no acute changes identified. Leftward axis. LABORATORY DATA: Have been ordered. An urgent CT of the head shows no obvious bleed or infarct. ASSESSMENT: 1. This 88-year-old female had an aspiration event causing her to cough and gag, which resulted in a syncopal episode, most likely vasovagal. 2. Underlying profound dementia. 3. Essential hypertension. 4. Degenerative arthritis. 5. 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 PLAN: 1. We will admit her to the Medical Unit. 2. We will respect her DNR wishes. 3. We will order empiric antibiotics in the form of Rocephin. 4. We will try some clear liquids and do a bedside swallow evaluation. We will do a formal swallow evaluation in the morning. 5. I would hold her other home meds for now. ERIKA MILLS MD DR: EH/layne JOB#: [id number] / [id number] ARMINDA Rose MD, AHMED MD
[2019-05-01] MEDS ORDERED: APIX5TAB3 PO (19:58)
[2019-05-01] MEDS ORDERED: ACET160O49 PO (19:58)
[2019-05-01] MEDS ORDERED: ATOR10TA PO (19:58)
[2019-05-01] MEDS ORDERED: CLON0.5T11 PO (20:00)
[2019-05-01] MEDS ORDERED: ONDA4TAB7 PO (20:00)
[2019-05-01] MEDS ORDERED: ERGO500027 PO (20:00)
[2019-05-01] MEDS ORDERED: NYST15PO9 TP (20:00)
[2019-05-01] MEDS ORDERED: QUET100T4 PO (20:00)
[2019-05-01] MEDS ORDERED: LEVO88TA4 PO (20:00)
[2019-05-01] MEDS ORDERED: DULO20CA50 PO (20:00)
[2019-05-01] MEDS ORDERED: LACT1CAP21 PO (20:00)
[2019-05-01] MEDS ORDERED: FERR325T3 PO (20:00)
[2019-05-01] MEDS ORDERED: DIVA125C2 PO (20:00)
[2019-05-01] MEDS ORDERED: IPRA3AMP29 NEB (20:00)
[2019-05-01] MEDS ORDERED: PANT40TA5 PO (20:00)
[2019-05-01] MEDS ORDERED: METO25TA4 PO (20:00)
[2019-05-01] MEDS ORDERED: ACETAMINOPHEN 325 MG TABLET PO PRN (20:15)
[2019-05-01] MEDS ORDERED: ONDANSETRON ODT 4 MG TAB.RAPDIS PO PRN (20:15)
[2019-05-01] MEDS: METOPROLOL TART IMMED RELEASE 25 MG TABLET PO SCH (20:17)
[2019-05-01] MEDS: clonazePAM 0.5 MG TABLET PO SCH (20:17)
[2019-05-01] MEDS: QUEtiapine 100 MG TABLET. PO SCH (20:17)
[2019-05-01] MEDS: IPRATRPIUM/ALBUTEROL 0.5/2.5MG 3 ML NEBU. NEB SCH (20:36)
[2019-05-01] MEDS ORDERED: DIVALPROEX 125 MG CAP.SPRINK PO SCH (21:00)
[2019-05-01] MEDS: NYSTATIN TOPICAL POWDER 15GM BOTTLE. TP SCH (21:00)
[2019-05-01] MEDS ORDERED: ATORVASTATIN CALCIUM 10 MG TABLET. PO SCH (21:00)
[2019-05-02] VITALS (15 sets, daily range): BP systolic 101–144; BP diastolic 40–93
[2019-05-02] MEDS: IPRATRPIUM/ALBUTEROL 0.5/2.5MG 3 ML NEBU. NEB SCH ×3 (05:09→16:00)
[2019-05-02] MEDS ORDERED: LEVOTHYROXINE 88 MCG TABLET PO SCH (06:00)
[2019-05-02 06:22] LABS: BASO % 0 % (0-3); EOS # 0.2 x10^3/uL (0.0-0.7); EOS % 2 % (0-3); HEMATOCRIT 35.1 % (36.0-47.0); HEMOGLOBIN 11.4 g/dL (12.0-15.5); LYMPH # 1.3 x10^3/uL (1.0-4.8); LYMPH % 11 % (24-48); MEAN CORPUSCULAR HEMOGLOBIN 34 pg (25-35); MEAN CORPUSCULAR HGB CONC 33 g/dL (31-37); MEAN CORPUSCULAR VOLUME 103 fL (79-100); MONO # 0.9 x10^3/uL (0.0-1.1); MONO % 7 % (0-9); NEUT # 9.7 x10^3uL (1.8-7.7); NEUT % 80 % (31-73); PLATELET COUNT 101 x10^3/uL (140-400); RED CELL DISTRIBUTION WIDTH 15.7 % (11.5-14.5); WHITE BLOOD COUNT 12.1 x10^3/uL (4.0-11.0)
[2019-05-02 06:23] LABS: ALBUMIN 2.6 g/dL (3.4-5.0); ALBUMIN/GLOBULIN RATIO 0.8 (1.0-1.7); CALCIUM 8.4 mg/dL (8.5-10.1); CREATININE 1.1 mg/dL (0.6-1.0); GFR 47.1; TOTAL BILIRUBIN 0.3 mg/dL (0.2-1.0); TOTAL PROTEIN 5.7 g/dL (6.4-8.2)
[2019-05-02] MEDS ORDERED: PANTOPRAZOLE 40 MG TABLET. PO SCH (07:30)
[2019-05-02] MEDS: NYSTATIN TOPICAL POWDER 15GM BOTTLE. TP SCH ×2 (09:00→14:00)
[2019-05-02] MEDS ORDERED: DULoxetine HCL 20 MG CAPSULE.DR PO SCH (09:00)
[2019-05-02] MEDS: clonazePAM 0.5 MG TABLET PO SCH (09:57)
[2019-05-02] MEDS: QUEtiapine 100 MG TABLET. PO SCH (09:57)
[2019-05-02] MEDS: METOPROLOL TART IMMED RELEASE 25 MG TABLET PO SCH (09:57)
--- NOTE | 2019-05-02 16:18 | DS ---
DATE OF DISCHARGE: 05/02/2019 ATTENDING PHYSICIAN: Dr. Mills. DATE OF DISCHARGE: 05/02/2019 FINAL DISCHARGE DIAGNOSES: 1. Coughing spell and respiratory arrest, improved. 2. Profound dementia. 3. Probable vasovagal episode. 4. Essential hypertension. 5. Degenerative arthritis. 6. Behavioral issues related to dementia and with psychosis. HISTORY AND PHYSICAL: This is an 88-year-old female who was on the [facility] for the last couple of days. She was doing well. She had a swallow evaluation earlier in the week. They recommended thickened liquids. She choked, started coughing and had a respiratory event. A code was called. She is a DNR per advanced directives. By the time I got up there to see her, she was coming around. She did not need to be intubated at that time. She did not have any rhythm issues. Supplemental oxygen was added, breathing treatment ordered and IV fluids administered. She was admitted to our ICU for further monitoring and observation. PAST MEDICAL HISTORY: Gleaned from the old chart. PERTINENT LABORATORY AND X-RAY STUDIES: Her hemoglobin today was 11.4 g/dL with a white count of 12,000. Chemistry panel showed stable creatinine 1.1 mg/dL. Sodium and potassium within normal range. The obligatory CT of the head showed atrophy, no acute strokes or bleeds identified. There is no midline shift, hemorrhage. She had some old appearing lacunar infarcts in the left internal capsule, atrophy and chronic ischemic changes are typical for her age. Chest x-ray showed elevation of the right hemidiaphragm. Heart size is upper limits of normal. There are no acute infiltrates or decompensation identified. COURSE IN THE HOSPITAL: The patient was admitted to the ICU. We will order nebulizer treatment and empiric antibiotics. We went ahead and carefully evaluated her swallow evaluation, some clear liquids were tolerated. By the second hospital day, her home meds were restarted. She was afebrile. Her vital signs were stable and she had no respiratory distress. Unfortunately, she had no recollection of memory of what happened yesterday. In discussing the case with the [facility], they were able to take her to the unit for further treatment and evaluation. Therefore, on the next hospital day, she was discharged back to the [facility]. Reluctantly, we will continue her Eliquis 5 mg b.i.d., Lipitor, Klonopin p.r.n. anxiety, Depakote 375 at bedtime, Cymbalta, vitamin D2, ferrous sulfate, ipratropium, Synthroid, metoprolol, nystatin powder topically. She will follow a regular diet. We will have the speech pathologist see her again and reevaluate her swallow mechanism. In the meantime, she will continue honey thickened liquids with careful observation of her eating process. She remains a DNR per advanced directive. The patient was then discharged from our hospital back to the [facility] in stable condition with explicit instructions and followup care. ERIKA MILLS MD DR: EH/layne JOB#: [id number] / [id number] ARMINDA Rose MD, AHMED MD
--- NOTE | 2019-05-03 17:49 | EKG ---
[address] [address] Test Date: 2019-05-01 Test Time: 16:13:16 Pat Name: ALLIE JENSEN Department: Room: ICU03 1 Gender: F Test Director: RUSSELL : 1930 Requested By: ERIKA MILLS Order Number: [id number] Reading MD: Addy Borges MD Measurements Intervals [place] Rate: 97 P: 43 RI: 162 QRS: 7 QRSD: 88 T: 13 QT: 360 QTc: 462 Interpretive Statements SINUS RHYTHM Electronically Signed On 05-08-2019 16:32:52 CDT by Addy Borges MD
== END 2019-05-02 16:25 | DRG 189 ==
LOC: ICU 15:34
PROVIDERS: ADMIT Hospitalist; ATTEND Hospitalist
DX: J96.20 Acute and chronic respiratory failure, unspecified whether with hypoxia or hypercapnia (principal); F03.90 Unspecified dementia, unspecified severity, without behavioral disturbance, psychotic disturbance, mood disturbance, and anxiety; F41.9 Anxiety disorder, unspecified; M19.90 Unspecified osteoarthritis, unspecified site; M81.0 Age-related osteoporosis without current pathological fracture; Z66 Do not resuscitate; N18.3 Chronic kidney disease, stage 3 (moderate); I12.9 Hypertensive chronic kidney disease with stage 1 through stage 4 chronic kidney disease, or unspecified chronic kidney disease; J44.9 Chronic obstructive pulmonary disease, unspecified; Z79.01 Long term (current) use of anticoagulants
CPT/HCPCS: 36415; 70450; 71045; 80053; 83605; 85025; 87040; 87641; 94640; J0696; J7620; J7030

== ENCOUNTER 2019-05-02 16:13 | Inpatient (IN) | payer MEDICARE, OTHER ==
[~2019-05-02] VITALS: Ht 160 cm; Wt 67.6 kg
[2019-05-02 16:28] VITALS: BP 147/68
--- NOTE | 2019-05-02 16:30 | NUR ---
Admission Note with Justification for Admission to PSYCHIATRIC Patient admitted to PSYCHIATRIC for protective oversight for emergency stabilization of acute psychiatric crisis. Pt admitted from: ICU Mode of arrival: Wheelchair Accompanied By: [facility] Staff Precipitating behaviors that initiated intake and admission: Delusions, resistive to cares Description of failure of out patient attempts at stabilization in previous setting list behavior and medication trials: Pt had ammonia, got IV antibiotics Behaviors and assessment findings upon admission: Delusions, laughing, shouting Plan: Admit for protective oversight for adjustment and stabilization of medications, behaviors and mood. Intense treatment regimen including groups, medication adjustments, therapy, consistent regimen for ADL's, self care, and sleep hygiene. Daily monitoring by Inpatient staff, Psychiatry, and Medical Physician.
--- NOTE | 2019-05-02 16:35 | NUR ---
Patient was transferred from ICU, received report from [place]. During report, the nurse mentioned the patient being on 3L of oxygen. After the transfer, patient�s current oxygen tank was out upon arrival, her spo2 was 84%. Staff quickly got her back on oxygen. Patient is being monitored for s/s of hypoxemia, pt has audible wheezes. Pt is currently pulling down her own NC. Staff has adjusted this a few times since she's been on the unit. Patient is currently in the dayroom. Will continue to monitor.
[2019-05-02] MEDS: IPRATRPIUM/ALBUTEROL 0.5/2.5MG 3 ML NEBU. NEB SCH (20:10)
[2019-05-02] MEDS: LACTOBACILLUS RHAMNOSUS GG 1 CAPSULE. PO SCH (21:00)
[2019-05-02] MEDS: NYSTATIN TOPICAL POWDER 15GM BOTTLE. TP SCH (21:00)
[2019-05-02] MEDS: METOPROLOL TART IMMED RELEASE 25 MG TABLET PO SCH (21:00)
[2019-05-02] MEDS: QUEtiapine 100 MG TABLET. PO SCH ×2 (21:00→21:02)
[2019-05-02] MEDS: DIVALPROEX 125 MG CAP.SPRINK PO SCH ×2 (21:00→21:02)
--- NOTE | 2019-05-02 21:46 | PDOC ---
Exam Note: Jose Note: Please also refer to the separate dictated note~for this date of service dictated separately. Discussed the patient with Nursing staff reviewed the chart.~Reviewed interim history and current functioning. Reviewed vital signs,~Labs/ Radiology~and current medications noted below. Continue current treatment with the changes noted in the dictated addendum note Assessment: Vital Signs/I&O: Vital Signs Date Time Temp Pulse Resp B/P (MAP) Pulse Ox O2 Delivery O2 Flow Rate FiO2 05/02/19 21:29 104 147/68 05/02/19 20:11 93 05/02/19 16:28 98.4 20 Nasal Cannula 3.0 Current Medications: Meds: Current Medications Medications (Trade) Dose Ordered Sig/Ne Route PRN Reason Start Time Stop Time Status Last Admin Dose Admin Albuterol/ Ipratropium (Duoneb) 3 ml RTQID NEB 05/02/19 20:00 05/02/19 20:10 I have reviewed the current psychotropics carefully including drug interactions. Risk benefit ratio favors no change other than as noted in my dictated progress note. 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
[2019-05-02] MEDS ORDERED: C.DIFF MED SCREEN BY RX. MC ONE (23:15)
--- NOTE | 2019-05-02 23:36 | NUR ---
Nursing Note Called daughter and spoke at length with her about NPO status. Order states NPO, and aspiration precautions. Report was given by day shift to heidy guzman in pudding, dictation from doc states to continue with thick liquids and monitor swallowing closely. Daughter states that she conveyed to SW and to ICU nurse that she wanted to wait for the CONSTRUCTION EQUIPMENT MECHANIC HELPER to evaluate her status and to not give her anything by mouth for fear of choking. Clarification per family continue with Strict NPO status.
--- NOTE | 2019-05-03 04:15 | NUR ---
Nursing Note Pt found to be short of air, rr is 30 per minute, heart rate 128, pt states "Im short of breath", O2 sat 96%, bp 126/32 wbc 05/02/19 was 12.1, temp 98.2, pt has LE edema 2+ pitting oral membranes dry, skin hot to the touch, lungs have crackles and wheezes bilat, with coarse breath sounds. Dr. Raphael harmon, informed him of situation. Dr. Lim gave orders to give metoprolol 25 mg PO bid, give an extra respiratory treatment, zyprexa 5 mg BID prn. I informed him that the family was adamant about continued NPO until assessed by SEXOLOGIST, he insisted that I give the metoprolol with a small amount of thickened substance. Administered the metoprolol in a very minute amount of thick pudding, pt began to aspirate with significant shortness of air, gasping, and coughing. Pt continued to be unable to clear her airway, starting to decompensate turning red and desaturating. Suctioned deeply with yankaur suction cath. Pt points to her abdomen, states that she is in pain but that it is not chest pain. After suctioning a moderate amount of mucous and retained pudding, and after having a respiratory treatment, the patient recovered heart rate is down to 120, RR 22. Compressed Gas Plant Worker Leslie Ramirez RN notified of the situation.
[2019-05-03] MEDS: IPRATRPIUM/ALBUTEROL 0.5/2.5MG 3 ML NEBU. NEB SCH ×4 (04:51→20:55)
[2019-05-03 05:43] VITALS: BP 132/76
[2019-05-03] MEDS: LEVOTHYROXINE 88 MCG TABLET PO SCH (06:00)
--- NOTE | 2019-05-03 06:23 | NUR ---
Nursing Note Pt is now more red and hot to the touch, her temperature is 100.2, states that she doesn't feel well at all, is being calm and nice which is a total difference from her previous behavior of yelling and loud mean.
[2019-05-03] MEDS ORDERED: DULoxetine HCL 20 MG CAPSULE.DR PO SCH (09:00)
[2019-05-03] MEDS: LACTOBACILLUS RHAMNOSUS GG 1 CAPSULE. PO SCH ×2 (09:00→19:55)
[2019-05-03] MEDS: NYSTATIN TOPICAL POWDER 15GM BOTTLE. TP SCH ×3 (09:00→19:56)
[2019-05-03 09:18] VITALS: BP 128/68
--- NOTE | 2019-05-03 09:58 | NUR ---
Pt is labile at times. She will be calm, cooperative and compliant but then will yell and scream as it appears she is having hallucinations AEB she is looking at the wall yelling "ahhhhh!!!!" and yelling "nigger" When staff redirects her she points out in front of her or behind her and states "She told me to say nigger!" or "she told me to say it." Staff encourages her to not say derogatory words or to yell out. Staff gave pt an oral swab to rub her gums with which as seemed to help.
[2019-05-03] MEDS: METOPROLOL TART IMMED RELEASE 25 MG TABLET PO SCH ×2 (11:14→19:55)
[2019-05-03] MEDS: QUEtiapine 100 MG TABLET. PO SCH ×2 (11:15→19:53)
--- NOTE | 2019-05-03 11:55 | NUR ---
After evaluated pt nursing staff called pts Lianna HANKS and informed her of results and all choices available. LATONYA stated "Feed her. Give her what she can." When asked about administering medications, stated the safest way for pt to take medications is for her to take them crushed in a teaspoon of honey thick liquid however there is a possibility she is still aspirating that. Lianna stated "Yes. I'm ok with that, give her, her meds." and "make her comfortable." Lianna here for visiting hours and spoke with [facility] at length of all options and choices available. LATONYA continued to insist pt be fed and not "starve." She stated she will d/c on hospice Sunday. At this time it is recommended pt follows diet of puree with honey thick liquids.
--- NOTE | 2019-05-03 13:00 | NUR ---
CLARIFIER OPERATOR asked for nurse assistance with pt. Pt began coughing after lunch and was having difficulty catching her breath. With encouragement to cough and extra supplemental oxygen via nc pt began to catch her breath. Pt was redirected to the day room.
[2019-05-03 15:29] VITALS: BP 115/69
[2019-05-03] MEDS: DIVALPROEX 125 MG CAP.SPRINK PO SCH (19:55)
--- NOTE | 2019-05-03 22:42 | PDOC ---
Exam Note: Jose Note: Please also refer to the separate dictated note~for this date of service dictated separately.~Patient seen individually. Discussed the patient with Nursing staff reviewed the chart.~Reviewed interim history and current functioning. Reviewed vital signs,~Labs/ Radiology~and current medications noted below. Continue current treatment with the changes noted in the dictated addendum note Assessment: Vital Signs/I&O: Vital Signs Date Time Temp Pulse Resp B/P (MAP) Pulse Ox O2 Delivery O2 Flow Rate FiO2 05/03/19 20:58 95 Nasal Cannula 2.0 05/03/19 19:55 96 115/69 05/03/19 15:29 97.2 20 I & O 0 05/02/19 05/02/19 05/03/19 15:00 23:00 07:00 Intake Total 0 ml Balance 0 ml Current Medications: Meds: Current Medications Medications (Trade) Dose Ordered Sig/Ne Route PRN Reason Start Time Stop Time Status Last Admin Dose Admin Duloxetine HCl (Cymbalta) 20 mg DAILY PO 05/03/19 09:00 05/03/19 22:40 DC 05/03/19 11:15 Pharmacy Consult (C.diff Med Screen By Rx) 1 each 1X ONCE [facility] 05/02/19 23:15 05/02/19 23:18 DC 05/02/19 23:47 I have reviewed the current psychotropics carefully including drug interactions. Risk benefit ratio favors no change other than as noted in my dictated progress note. Diagnosis: Problems: (1) Anxiety disorder (2) Dementia in Alzheimer's disease with delusions (3) Dementia in Alzheimer's disease with depression (4) Impulse control disorder (5) Dementia, vascular, with depression (6) Dementia, vascular, with delusions (7) Major neurocognitive disorder (8) Obsessive compulsive disorder ARMINDA YORK MD May 03, 2019 22:42
--- NOTE | 2019-05-03 22:54 | PN ---
DATE: 05/03/2019 ATTENDING PHYSICIAN: Dr. Mahmood. CHIEF COMPLAINT: Shortness of breath. SUBJECTIVE: The patient is pleasantly confused. She is in the day room, sitting in her wheelchair. There is no obvious respiratory distress. She is having adequate oxygenation at the table. She is pleasantly confused, does not remember what happened a few days ago. OBJECTIVE: VITAL SIGNS: Her blood pressure today is 132/76, pulse is down to 99, it fluctuates, temperature earlier today 100.2 degrees Fahrenheit, repeated at 0900 hours down to 98.6. HEENT: Head is without trauma. Pupils are reactive. Sclerae nonicteric. Oropharynx clear. NECK: Supple, no bruits. LUNGS: Minimal rhonchi, otherwise clear with good air movement. CARDIOVASCULAR: Showed regular heart tones. EXTREMITIES: Showed trace edema. NEUROLOGIC: Focally intact, pleasantly confused. LABORATORY DATA: Chest x-ray yesterday was noted. She is also scheduled to have a repeat swallow evaluation. ASSESSMENT: 1. This 88-year-old female had acute on chronic respiratory failure. 2. Respiratory arrest, resolved. 3. Underlying dementia. 4. Aspiration. PLAN AND RECOMMENDATIONS: 1. Continue same regimen. 2. We will recheck her swallow evaluation later today per speech pathology. 3. We shall follow along closely. 4. Family is here to discuss whether she would benefit with a hospice consult. ERIKA MILLS MD DR: EH/layne JOB#: [id number] / [id number]
--- NOTE | 2019-05-03 23:00 | NUR ---
Pt located in the dayroom sitting calmly in her wheelchair. Pt compliant with HS medications crushed in a teaspoon of honey thick liquid. Pt continues to have crackles and wheezes bilaterally. Pt very pleasant, asked this nurse for her teeth.
--- NOTE | 2019-05-04 01:06 | HP ---
ADMIT DATE: 05/02/2019 PSYCHIATRIC ADMISSION HISTORY/EVALUATION This is also a progress note. This late entry 05/02/2019 covers elements not covered in my initial note of 05/02/2019. I met with the patient the evening of 05/02/2019. IDENTIFYING DATA: The patient is an 88-year-old female, referred back to us from the ICU at [facility] where she was transferred following a rapid response for her aspiration within the context of marked dysphagia. The patient remains confused, restless, agitated, taking her medications crushed, remains on n.p.o. and honey-thickened liquids. She was initially referred to us from [facility] by primary care physician for agitation, hallucinations and aggression. She was psychiatrically stabilized on the [facility], then had an episode of choking with rapid response, and transferred to the ICU, now medically stabilized and back with us. CHIEF COMPLAINT: "I want to eat." HISTORY OF PRESENT ILLNESS: The patient has a history of dementia, Alzheimer's vascular type. She has been extremely paranoid, delusional, agitated, aggressive at the [facility], resulting in the initial referral. She was stabilized on the [facility] on a combination of Luvox and Seroquel along with Depakote, Remeron. Klonopin had been discontinued. This is when she was transferred to ICU and now back with us. No clear history of bipolar disorder, suicidal or homicidal ideation. PAST PSYCHIATRIC HISTORY: As above. MEDICAL HISTORY: Positive for the aspiration, chronic kidney disease stage 3, osteoporosis, hypertension, anxiety, impaired ambulation, in wheelchair. DIET: Pureed honey thickened liquids. CODE STATUS: DNR. DRUG ALLERGIES: Negative. Ambulates in wheelchair. CURRENT PSYCHOTROPICS: The patient should be on Luvox 50 mg daily, Seroquel 100 mg q. 12 hours, Depakote Sprinkles 250 a.m. and 375 at bedtime, Klonopin was stopped, Zyprexa p.r.n., Remeron 15 mg at bedtime. Valproic acid level at this Depakote dosage was 86. FAMILY HISTORY: Noncontributory. SOCIAL HISTORY: No history of alcohol, drug abuse, physical, sexual or elder abuse. She is not known to be a perpetrator. MENTAL STATUS EXAMINATION: The patient is oriented to herself. She is in a wheelchair. Insight, judgment, recent and remote memory, attention, concentration, fund of knowledge poor, consistent with her diagnoses. IMPRESSION: Major neurocognitive disorder, Alzheimer, vascular with delusion, depression, behavioral disturbance; anxiety disorder, unspecified; impulse control disorder, unspecified dysphagia. Rest unchanged from above. PLAN: Continue the patient on her current psychotropics. Observe baseline. Meds are being given crushed and thickened liquids since she remains n.p.o. We will defer medical management to Dr. Gaytan. Estimated length of stay 7-9 days. This transition will be back to [facility] when stable. ARMINDA YORK MD DR: GONZALO/layne JOB#: [id number] / [id number]
[2019-05-04] MEDS: LEVOTHYROXINE 88 MCG TABLET PO SCH (05:02)
[2019-05-04 05:55] VITALS: BP 127/81
[2019-05-04] MEDS: IPRATRPIUM/ALBUTEROL 0.5/2.5MG 3 ML NEBU. NEB SCH ×4 (06:03→23:57)
[2019-05-04 07:44] LABS: BASO % 0 % (0-3); EOS # 0.3 x10^3/uL (0.0-0.7); EOS % 5 % (0-3); HEMATOCRIT 34.9 % (36.0-47.0); HEMOGLOBIN 11.5 g/dL (12.0-15.5); LYMPH # 1.1 x10^3/uL (1.0-4.8); LYMPH % 20 % (24-48); MEAN CORPUSCULAR HEMOGLOBIN 34 pg (25-35); MEAN CORPUSCULAR HGB CONC 33 g/dL (31-37); MEAN CORPUSCULAR VOLUME 104 fL (79-100); MONO # 0.5 x10^3/uL (0.0-1.1); MONO % 9 % (0-9); NEUT # 3.8 x10^3uL (1.8-7.7); NEUT % 67 % (31-73); PLATELET COUNT 95 x10^3/uL (140-400); RED BLOOD COUNT 3.37 x10^6/uL (3.50-5.40); WHITE BLOOD COUNT 5.7 x10^3/uL (4.0-11.0)
[2019-05-04 07:50] LABS: ALBUMIN 2.7 g/dL (3.4-5.0); ALBUMIN/GLOBULIN RATIO 0.8 (1.0-1.7); CREATININE 1.1 mg/dL (0.6-1.0); GFR 47.1; POTASSIUM 3.9 mmol/L (3.5-5.1); TOTAL BILIRUBIN 0.5 mg/dL (0.2-1.0); TOTAL PROTEIN 6.3 g/dL (6.4-8.2)
[2019-05-04] MEDS: DIVALPROEX 125 MG CAP.SPRINK PO SCH ×2 (08:03→20:07)
[2019-05-04] MEDS: METOPROLOL TART IMMED RELEASE 25 MG TABLET PO SCH ×2 (08:04→20:07)
[2019-05-04] MEDS: QUEtiapine 100 MG TABLET. PO SCH ×2 (08:05→20:06)
[2019-05-04] MEDS: NYSTATIN TOPICAL POWDER 15GM BOTTLE. TP SCH ×3 (08:05→20:07)
[2019-05-04] MEDS: LACTOBACILLUS RHAMNOSUS GG 1 CAPSULE. PO SCH ×2 (08:06→20:06)
--- NOTE | 2019-05-04 10:00 | NUR ---
Pt is calm, cooperative, compliant. No agitation, no aggression, no hallucinations, or delusions. She is compliant with medications and assessment.
--- NOTE | 2019-05-04 14:27 | PN ---
DATE: 05/03/2019 PSYCHIATRIC PROGRESS NOTE This note covers elements not covered in my initial note 05/03. SUBJECTIVE: I met with the patient evening of 05/03. The patient slept 4-1/4 hours previous night. She remains n.p.o. Takes her medications crushed and thickened liquids. REVIEW OF SYSTEMS: Ambulation impaired, in wheelchair. No CV, , pulmonary, eye, ENT system symptoms on review. Reliability poor. MENTAL STATUS EXAM: Oriented to herself. Insight, judgment, recent and remote memory, attention, concentration, fund of knowledge poor, consistent with her diagnosis mentioned in my initial note. PLAN: No change from initial note. MAN Victor M YORK MD DR: GONZALO/layne JOB#: [id number] / [id number]
[2019-05-04 15:42] VITALS: BP 90/56
--- NOTE | 2019-05-04 20:56 | PDOC ---
Exam Note: Jose Note: Please also refer to the separate dictated note~for this date of service dictated separately.~Patient seen individually. Discussed the patient with Nursing staff reviewed the chart.~Reviewed interim history and current functioning. Reviewed vital signs,~Labs/ Radiology~and current medications noted below. Continue current treatment with the changes noted in the dictated addendum note Assessment: Vital Signs/I&O: Vital Signs Date Time Temp Pulse Resp B/P (MAP) Pulse Ox O2 Delivery O2 Flow Rate FiO2 05/04/19 20:07 87 143/86 05/04/19 16:11 93 Nasal Cannula 2.0 05/04/19 15:42 97.6 18 I & O 05/03/19 05/03/19 05/04/19 15:00 23:00 07:00 Intake Total 0 ml 240 ml 60 ml Balance 0 ml 240 ml 60 ml Labs: Laboratory Tests Test 05/04/19 07:20 White Blood Count 5.7 x10^3/uL (4.0-11.0) Red Blood Count 3.37 x10^6/uL (3.50-5.40) L Hemoglobin 11.5 g/dL (12.0-15.5) L Hematocrit 34.9 % (36.0-47.0) L Mean Corpuscular Volume 104 fL (79-100) H Mean Corpuscular Hemoglobin 34 pg (25-35) Mean Corpuscular Hemoglobin Concent 33 g/dL (31-37) Red Cell Distribution Width 16.0 % (11.5-14.5) H Platelet Count 95 x10^3/uL (140-400) L Neutrophils (%) (Auto) 67 % (31-73) Lymphocytes (%) (Auto) 20 % (24-48) L Monocytes (%) (Auto) 9 % (0-9) Eosinophils (%) (Auto) 5 % (0-3) H Basophils (%) (Auto) 0 % (0-3) Neutrophils # (Auto) 3.8 x10^3uL (1.8-7.7) Lymphocytes # (Auto) 1.1 x10^3/uL (1.0-4.8) Monocytes # (Auto) 0.5 x10^3/uL (0.0-1.1) Eosinophils # (Auto) 0.3 x10^3/uL (0.0-0.7) Basophils # (Auto) 0.0 x10^3/uL (0.0-0.2) Sodium Level 146 mmol/L (136-145) H Potassium Level 3.9 mmol/L (3.5-5.1) Chloride Level 107 mmol/L (98-107) Carbon Dioxide Level 31 mmol/L (21-32) Anion Gap 8 (6-14) Blood Urea Nitrogen 25 mg/dL (7-20) H Creatinine 1.1 mg/dL (0.6-1.0) H Estimated GFR (Cockcroft-Gault) 47.1 BUN/Creatinine Ratio 23 (6-20) H Glucose Level 79 mg/dL (70-99) Calcium Level 9.0 mg/dL (8.5-10.1) Total Bilirubin 0.5 mg/dL (0.2-1.0) Aspartate Amino Transferase (AST) 20 U/L (15-37) Alanine Aminotransferase (ALT) 14 U/L (14-59) Alkaline Phosphatase 61 U/L (46-116) Total Protein 6.3 g/dL (6.4-8.2) L Albumin 2.7 g/dL (3.4-5.0) L Albumin/Globulin Ratio 0.8 (1.0-1.7) L Current Medications: Meds: Current Medications Medications (Trade) Dose Ordered Sig/Ne Route PRN Reason Start Time Stop Time Status Last Admin Dose Admin Fluvoxamine Maleate (Luvox) 75 mg DAILY PO 05/04/19 09:00 05/04/19 08:05 Divalproex Sodium (Depakote Sprinkles) 250 mg DAILY PO 05/04/19 09:00 05/04/19 08:05 I have reviewed the current psychotropics carefully including drug interactions. Risk benefit ratio favors no change other than as noted in my dictated progress note. 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
--- NOTE | 2019-05-04 23:13 | PN ---
DATE: 05/04/2019 ATTENDING PHYSICIAN: Dr. Mahmood CHIEF COMPLAINT: Shortness of breath. SUBJECTIVE: The patient is comfortable. She is sitting in her wheelchair. She is pleasantly confused. There is no obvious respiratory distress or dyspnea. OBJECTIVE FINDINGS: VITAL SIGNS: Her blood pressure today is 127/81 mmHg, pulse is 85 and regular, oxygen saturation 96% on 2 liters nasal cannula. HEENT: Head is without trauma. Pupils are reactive. Sclerae nonicteric. Oropharynx clear. LUNGS: Actually clear. CARDIOVASCULAR: Showed regular heart tones. No gallops. ABDOMEN: Soft. No guarding, no rebound tenderness. EXTREMITIES: Show trace edema. NEUROLOGIC: Pleasantly confused. ASSESSMENT: 1. An 88-year-old female with [id number] respiratory failure. 2. End-stage chronic obstructive pulmonary disease. 3. Underlying dementia. 4. Probable aspiration. RECOMMENDATIONS PLAN: 1. Continue same regimen as before. 2. speech pathology. 3. We shall gladly follow her closely. 4. Family to decide on whether hospice care and palliative care is appropriate. ERIKA MILLS MD DR: EH/layne JOB#: [id number] / [id number]
--- NOTE | 2019-05-04 23:55 | NUR ---
Pt out in dayroom all evening. Compliant with crushed medications. Pt in good spirits, laughing and interacting with staff. Continues to ask people for their teeth.
[2019-05-05] MEDS ORDERED: DIVA125C2 PO (00:52)
[2019-05-05] MEDS ORDERED: OLAN5TAB5 PO (00:53)
[2019-05-05] MEDS ORDERED: FLUV50TA2 PO (00:54)
[2019-05-05] MEDS: IPRATRPIUM/ALBUTEROL 0.5/2.5MG 3 ML NEBU. NEB SCH ×4 (05:00→23:35)
[2019-05-05] MEDS: LEVOTHYROXINE 88 MCG TABLET PO SCH (05:31)
[2019-05-05 05:41] VITALS: BP 103/58
[2019-05-05] MEDS: DIVALPROEX 125 MG CAP.SPRINK PO SCH ×2 (07:42→19:40)
[2019-05-05] MEDS: QUEtiapine 100 MG TABLET. PO SCH ×2 (07:43→19:39)
[2019-05-05] MEDS: METOPROLOL TART IMMED RELEASE 25 MG TABLET PO SCH ×2 (07:43→19:39)
[2019-05-05] MEDS: LACTOBACILLUS RHAMNOSUS GG 1 CAPSULE. PO SCH ×2 (07:43→19:39)
[2019-05-05] MEDS: NYSTATIN TOPICAL POWDER 15GM BOTTLE. TP SCH ×3 (07:45→21:00)
--- NOTE | 2019-05-05 08:15 | NUR ---
Patient in bed, drowsy, arousable, O2 on via NC; she states she does not want to get out of bed just yet. Will let patient stay in bed and hold morning medications.
--- NOTE | 2019-05-05 10:49 | NUR ---
SW left msg. for Admission at [facility], to discuss pt. discharge. JERARDO spoke to pt. daughter, Lianna, to discuss discharge and to get permission to give information to [facility]. JERAROD spoke to Joann, [facility], to discuss discharge. JERARDO will fax updated pt. notes to Joann to prepare for discharge.
--- NOTE | 2019-05-05 14:48 | NUR ---
Patient slept in late, she was out of bed at about 11:10 and received her morning medications at that time. patient is calm, disorganized, and compliant. Her daughter visited at lunch and helped the patient eat. patient had trouble swallowing with most of her foods, most bites followed by a series of coughing and occasionally a loud 'goddammit' from the patient. She appeared to tolerate the magic cup fairly well. Patient currently sitting in day room, drowsy; will continue to monitor.
--- NOTE | 2019-05-05 16:15 | NUR ---
Patient was removed from the day room for repeatedly calling out 'nigger' and 'leave me alone' when no one was near her or interacting with her. [facility], will continue to monitor.
[2019-05-05 16:29] VITALS: BP 118/70
--- NOTE | 2019-05-05 16:50 | NUR ---
Patient was moved back into the day room where she started to become agitated, stating that some woman behind her was calling her names including 'laurel'. Aides reported that patient was arguing with someone on the floor that wasn't really there. PRN medication provided per eMAR, will continue to monitor.
--- NOTE | 2019-05-05 19:15 | PDOC ---
Exam Note: Jose Note: Please also refer to the separate dictated note~for this date of service dictated separately.~Patient seen individually. Discussed the patient with Nursing staff reviewed the chart.~Reviewed interim history and current functioning. Reviewed vital signs,~Labs/ Radiology~and current medications noted below. Continue current treatment with the changes noted in the dictated addendum note Assessment: Vital Signs/I&O: Vital Signs Date Time Temp Pulse Resp B/P (MAP) Pulse Ox O2 Delivery O2 Flow Rate FiO2 05/05/19 16:31 100 Nasal Cannula 2.0 05/05/19 16:29 97.2 81 18 118/70 (86) I & O 05/04/19 05/04/19 05/05/19 15:00 23:00 07:00 Intake Total 360 ml 600 ml Balance 360 ml 600 ml Current Medications: I have reviewed the current psychotropics carefully including drug interactions. Risk benefit ratio favors no change other than as noted in my dictated progress note. Diagnosis: Problems: (1) Anxiety disorder (2) Dementia in Alzheimer's disease with delusions (3) Dementia in Alzheimer's disease with depression (4) Impulse control disorder (5) Dementia, vascular, with depression (6) Dementia, vascular, with delusions (7) HTN (hypertension) (8) Obsessive compulsive disorder ARMINDA YORK MD May 05, 2019 19:15
--- NOTE | 2019-05-05 22:10 | NUR ---
Pt in dayroom this evening. Pt having episodes of yelling and calling out "nigger." Redirection unsuccessful. Pt taken to the [facility] where she continued to yell. Pt compliant with crushed medications and taken to bed.
[2019-05-06] MEDS: LEVOTHYROXINE 88 MCG TABLET PO SCH (05:17)
[2019-05-06 05:28] VITALS: BP 104/52
[2019-05-06] MEDS: IPRATRPIUM/ALBUTEROL 0.5/2.5MG 3 ML NEBU. NEB SCH ×2 (05:53→10:36)
[2019-05-06 08:07] VITALS: BP 104/52
[2019-05-06] MEDS: METOPROLOL TART IMMED RELEASE 25 MG TABLET PO SCH (08:07)
[2019-05-06] MEDS: QUEtiapine 100 MG TABLET. PO SCH (08:07)
[2019-05-06] MEDS: DIVALPROEX 125 MG CAP.SPRINK PO SCH (08:07)
[2019-05-06] MEDS: LACTOBACILLUS RHAMNOSUS GG 1 CAPSULE. PO SCH (08:07)
[2019-05-06] MEDS: NYSTATIN TOPICAL POWDER 15GM BOTTLE. TP SCH (08:08)
--- NOTE | 2019-05-06 08:38 | NUR ---
[facility] Social Work Discharge Planning Form Patient Name ALLIE JENSEN Admit Date: 04/17/2019 DISCHARGE PLAN Discharge Destination: [facility] Assessment: NA Level II Assessment: NA Transportation: [facility] Control Coordinator Transport to transport pt. on 04/05/2019 at 11:30 a.m. Special Instructions/Notes: Please fax discharge paperwork and medication list to [phone] DISCHARGE TO FACILITY Facility: [facility] Address: [address] [place] [address] Contact Name: JERARDO Boston Contact Name: Soo Doug PCP: Dr. Bonilla Psychiatrist: Dr. Castro Additional Information: Pt. will discharge with [facility] services. Addendum: 05/06/19 at 0858 by ORION KURTZ Transport on 05/06/2019.
--- NOTE | 2019-05-06 09:50 | NUR ---
Patient has been hallucinating and becoming increasingly agitated. She was moved to the hallway because she was being loud and profane, upsetting some of the other patients. At one point patient called out 'I ain't a nigger, you're the nigger'. Attempts to redirect patient unsuccessful, she states that she is not using bad language, the lady behind her is. PRN medication provided per eMAR, will continue to monitor.
--- NOTE | 2019-05-06 11:42 | NUR ---
Transition Record was faxed to follow-up provider with the following elements: Reason for admission, procedures, tests, principal diagnosis, pending studies, patient instructions, 26/03 contact information for unit, phone number to obtain pending test results, plan for follow-up care, physician follow-up, advanced directive information, and medication list with dose, duration and instructions. This information was included in the following documents: History and physical, lab results, study results, progress notes, social work planning form, DC instruction form, patient visit summary, and medication reconciliation form. Date & time record faxed: 09:53 06 May 2019 Record faxed to: [facility] Record discussed with/ report given to: DINA Byrd at [facility]
--- NOTE | 2019-05-06 18:36 | PDOC ---
Exam Note: Jose Note: Please also refer to the separate dictated note~for this date of service dictated separately.~Patient seen individually. Discussed the patient with Nursing staff reviewed the chart.~Reviewed interim history and current functioning. Reviewed vital signs,~Labs/ Radiology~and current medications noted below. Continue current treatment with the changes noted in the dictated addendum note Assessment: Vital Signs/I&O: Vital Signs Date Time Temp Pulse Resp B/P (MAP) Pulse Ox O2 Delivery O2 Flow Rate FiO2 05/06/19 10:36 97 Nasal Cannula 2.0 05/06/19 08:08 75 104/52 05/06/19 05:28 97.1 18 I & O 05/05/19 05/05/19 05/06/19 14:59 22:59 06:59 Intake Total 120 ml 360 ml Balance 120 ml 360 ml Current Medications: I have reviewed the current psychotropics carefully including drug interactions. Risk benefit ratio favors no change other than as noted in my dictated progress note. 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
--- NOTE | 2019-05-06 23:11 | PN ---
DATE: 05/04/2019 PSYCHIATRIC PROGRESS NOTE This late entry, 05/04, covers the elements not covered in my initial note. SUBJECTIVE: I met with the patient on the evening of 05/04. The patient slept 6-3/4 hours previous evening. She is still a risk for aspiration. Take medications in a teaspoon with honey thickened liquids. The family is considering hospice care per discharge. We will defer to Dr. Gaytan. REVIEW OF SYSTEMS: Ambulation impaired, in wheelchair. No CV, , pulmonary, eye, ENT systems symptoms on review other than above. Reliability poor. MENTAL STATUS EXAM: Oriented to herself. Insight, judgment, recent and remote memory, attention, concentration, fund of knowledge poor, consistent with her diagnosis mentioned in my initial note. PLAN: No change from initial note. MAN Victor M YORK MD DR: GONZALO/layne JOB#: [id number] / [id number]
--- NOTE | 2019-05-07 00:07 | PN ---
DATE: 05/06/2019 PSYCHIATRIC PROGRESS NOTE This late entry 05/05/2019 covers elements not covered in my initial note. SUBJECTIVE: I met with the patient in the evening. She slept 6-1/2 hours previous night. She has been staying at the nursing station, still obsessed asking for teeth, became agitated, received Zyprexa in the evening. Her daughter fed her lunch and she mostly had a Magic cup. Food is pureed. She takes honey thickened liquids to eat slowly and is being monitored carefully for aspiration. REVIEW OF SYSTEMS: Shortness of breath, impaired ambulation in wheelchair. No CV, , eye system symptoms on review. Reliability poor. MENTAL STATUS EXAM: Oriented to herself. Insight, judgment, recent and remote memory, attention, concentration, fund of knowledge poor, consistent with her diagnosis mentioned in my initial note. PLAN: No change from initial note. MAN Victor M YORK MD DR: GONZALO/layne JOB#: [id number] / [id number]
--- NOTE | 2019-05-07 09:03 | HP ---
ADMIT DATE: 05/02/2019 ATTENDING PHYSICIAN: Dr. Mills. CHIEF COMPLAINT: Coughing spell and arrest. HISTORY OF PRESENT ILLNESS: The patient is an 88-year-old female admitted several days ago to [facility]. She coughed, choked, she had an episode where she lost consciousness. She is a DNR per advanced directives based on her chart. She was resuscitated. We did not have to shock her. She had a rhythm. She was given supplemental oxygen and IV started, fluids administered. About an hour later by the time we got her down to the medical unit, she was talking. She moved all extremities. She did not remember what happened. She has a baseline dementia with confusion. From a respiratory standpoint, there is coarse rhonchi. An urgent CT of the head was done due to her syncopal episode. I suspect she may have had a vasovagal episode causing her to pass out. The patient then will be admitted to the medical floor with monitoring. Empiric antibiotics have been started in case of further aspiration from her history. PAST MEDICAL HISTORY: Significant for profound dementia. She has been at [facility] in [place]. She has been physically combative towards staff, kicking, name calling, verbally aggressive. She has a history of hallucinatory situation. No suicidal or hormonal ideation. She has chronic kidney disease stage 3, osteoporosis, essential hypertension and mild COPD. ALLERGIES: None. CODE STATUS: DNR, no family here. FAMILY HISTORY: I could not obtain. SOCIAL HISTORY: No history of alcohol, drug abuse or sexual disorder, elder abuse. MEDICATIONS: She was taking Remeron. She was taking Eliquis, Lipitor, Klonopin, Cymbalta, vitamin D2, ferrous sulfate, lactobacillus, metoprolol, Synthroid, Protonix, and Seroquel. REVIEW OF SYSTEMS: Unobtainable due to the patient's mental state. PHYSICAL EXAMINATION: GENERAL: When I saw her, this is a pleasantly confused elderly female. INITIAL VITAL SIGNS: Showed a blood pressure of 120 systolic. She was afebrile. HEENT: Head is without trauma. The pupils are reactive. Sclerae are nonicteric. The oropharynx is clear. NECK: Supple. LUNGS: Coarse rhonchi bilaterally with minimal wheezing. CARDIOVASCULAR: Showed regular heart tones. No obvious gallops. Peripheral pulses are palpable and full. ABDOMEN: Soft, scaphoid, nontender. No obstruction, bowel sounds are hypoactive. EXTREMITIES: Show no cyanosis. Trace edema, nonpitting. NEUROLOGIC: The patient is pleasant, she is not combative. She is not aware of person, place or time. The resting 12-lead electrocardiogram done earlier showed a sinus rhythm, no acute changes identified. Leftward axis. LABORATORY DATA: Have been ordered. An urgent CT of the head shows no obvious bleed or infarct. ASSESSMENT: 1. This 88-year-old female had an aspiration event causing her to cough and gag, which resulted in a syncopal episode, most likely vasovagal. 2. Underlying profound dementia. 3. Essential hypertension. 4. Degenerative arthritis. 5. 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 PLAN: 1. We will admit her to the Medical Unit. 2. We will respect her DNR wishes. 3. We will order empiric antibiotics in the form of Rocephin. 4. We will try some clear liquids and do a bedside swallow evaluation. We will do a formal swallow evaluation in the morning. 5. I would hold her other home meds for now. ERIKA MILLS MD DR: EH/layne JOB#: [id number] / [id number] ARMINDA Rose MD, AHMED MD
--- NOTE | 2019-05-08 00:46 | DS ---
DATE OF DISCHARGE: 05/06/2019 PSYCHIATRIC PROGRESS NOTE This late entry 05/06/2019 covers elements not covered in my initial note. REASON FOR ADMISSION: Please refer to the admission history for details. Briefly, the patient is an 88-year-old female who was referred back to us from the ICU after she was medically stabilized per Dr. Gaytan/Dr. Lim, consequent to an episode of aspiration and marked dysphagia when she was on our unit for psychiatric stabilization. She was agitated, labile in her mood in the ICU, resistive with cares, having hallucinations, requiring this referral back to us. SIGNIFICANT FINDINGS AND CLINICAL COURSE: Following admission, the patient was seen daily individually. The patient remained confused, somewhat anxious, restless, obsessed about wanting her teeth as before. She remained on pureed diet with honey thickened liquids, was eating slow and closely monitored. Family had discussions about possible hospice care. At times, she would just eat a Magic cup for a meal. Behaviorally, she was doing better, remains confused, but no active hallucinations, suicidal or homicidal ideation. Prior to discharge on 05/06/2019, ambulation impaired, in wheelchair. REVIEW OF SYSTEMS: No CV, , pulmonary, eye system symptoms on review. Reliability poor. MENTAL STATUS EXAM: Oriented to herself. Insight, judgment, recent and remote memory, attention, concentration, fund of knowledge poor, consistent with her diagnosis. FINAL DIAGNOSES: Major neurocognitive disorder; Alzheimer, vascular with delusion; depression; behavioral disturbance; anxiety disorder, unspecified; impulse control disorder, unspecified; significant dysphagia; rest unchanged from admission. DISCHARGE MEDICATIONS: Please refer to the [facility] for the outpatient psychiatric and medical followup at the senior care. MAN Victor M YORK MD DR: GONZALO/layne JOB#: [id number] / [id number]
== END 2019-05-06 11:45 | disposition hospice, inpatient (51) | DRG 57 ==
LOC: GEROPSY 16:13
PROVIDERS: ADMIT Psychiatry & Neurology Psychiatry; ATTEND Psychiatry & Neurology Psychiatry
DX: G30.9 Alzheimer's disease, unspecified (principal); F02.81 Dementia in other diseases classified elsewhere, unspecified severity, with behavioral disturbance; F01.51 Vascular dementia, unspecified severity, with behavioral disturbance; F63.9 Impulse disorder, unspecified; F41.9 Anxiety disorder, unspecified; F32.9 Major depressive disorder, single episode, unspecified; J44.9 Chronic obstructive pulmonary disease, unspecified; Z66 Do not resuscitate; N18.3 Chronic kidney disease, stage 3 (moderate); I12.9 Hypertensive chronic kidney disease with stage 1 through stage 4 chronic kidney disease, or unspecified chronic kidney disease; M81.0 Age-related osteoporosis without current pathological fracture; M19.90 Unspecified osteoarthritis, unspecified site; F42.9 Obsessive-compulsive disorder, unspecified; R13.10 Dysphagia, unspecified; Z51.5 Encounter for palliative care
CPT/HCPCS: 36415; 80053; 85025; 92526; 94640; 94760; J7620; 92610